=== PATIENT | male | born 1955 | race Hispanic/Latino ===

== ENCOUNTER → 2018-08-14 | Outpatient (CLI) | payer OTHER ==
[2018-08-14 10:37] LABS: BASOPHILS % (AUTO) 0.6 % (0.0-5.0); EOSINOPHILS % (AUTO) 2.3 % (0.0-8.0); HEMATOCRIT 47.5 % (42-54); LYMPHOCYTES % (AUTO) 28.2 % (21.0-51.0); MEAN CORPUSCULAR HEMOGLOBIN 30.5 pg (27.0-33.0); MEAN CORPUSCULAR HGB CONC 34.7 g/dL (32.0-36.0); MEAN CORPUSCULAR VOLUME 88.1 fL (79-99); MONOCYTES % (AUTO) 5.9 % (3.0-13.0); NUCLEATED RED BLOOD CELLS 0.1 % (0.0-0.19); PLATELET COUNT (AUTO) 264 K/uL (130-400); RED BLOOD CELL COUNT(AUTO) 5.39 MIL/uL (4.50-6.20); RED CELL DISTRIBUTION WIDTH 13.5 % (11.0-15.5); WHITE BLOOD COUNT (AUTO) 11.4 K/uL (4.8-10.8)
[2018-08-14 10:49] LABS: HEMOGLOBIN A1C 5.9 % (4.0-6.0)
[2018-08-14 11:04] LABS: ALBUMIN 4.2 g/dL (3.5-5.0); BILIRUBIN,DIRECT 0.1 mg/dL (0.0-0.3); BILIRUBIN,TOTAL 0.6 mg/dL (0.2-1.0); CREATININE 0.9 mg/dL (0.5-1.5); POTASSIUM 4.7 mmol/L (3.5-5.1); THYROID STIMULATING HORMONE 1.66 uIU/mL (0.36-3.74); TOTAL PROTEIN, SERUM 8.1 g/dL (6.0-8.3)
== END | disposition home or self-care (01) ==
LOC: LAB 09:41
PROVIDERS: ATTEND Internal Medicine
DX: Z12.5 Encounter for screening for malignant neoplasm of prostate (principal); Z13.1 Encounter for screening for diabetes mellitus; E55.9 Vitamin D deficiency, unspecified; E03.9 Hypothyroidism, unspecified
CPT/HCPCS: 36415; 80053; 80061; 80076; 82043; 82306; 83036; 84153; 84443; 84540; 85025

== ENCOUNTER → 2018-09-22 | Outpatient (CLI) | payer BC, OTHER | END | disposition home or self-care (01) | LOC: RAH 07:51 | PROVIDERS: ATTEND Internal Medicine | DX: M47.812 Spondylosis without myelopathy or radiculopathy, cervical region (principal); M48.02 Spinal stenosis, cervical region; M25.78 Osteophyte, vertebrae; M48.061 Spinal stenosis, lumbar region without neurogenic claudication; M50.30 Other cervical disc degeneration, unspecified cervical region; M99.81 Other biomechanical lesions of cervical region; M99.83 Other biomechanical lesions of lumbar region; M54.17 Radiculopathy, lumbosacral region | CPT/HCPCS: 72141; 72148 ==

== ENCOUNTER 2018-11-05 08:53 | Emergency (ER) | payer BC, OTHER ==
[2018-11-05] MEDS ORDERED: ORPHENADRINE CITRATE 30 MG/ML ML ONE (09:23)
[2018-11-05] MEDS ORDERED: KETOROLAC TROMETHAMINE 30MG/ML ONE (09:24)
[2018-11-05 10:13] LABS: BASOPHILS % (AUTO) 0.6 % (0.0-5.0); HEMATOCRIT 45.6 % (42-54); LYMPHOCYTES % (AUTO) 22.6 % (21.0-51.0); MEAN CORPUSCULAR HEMOGLOBIN 29.9 pg (27.0-33.0); MEAN CORPUSCULAR VOLUME 87.8 fL (79-99); MONOCYTES % (AUTO) 5.5 % (3.0-13.0); NEUTROPHILS % (AUTO) 69.3 % (40.0-77.0); NUCLEATED RED BLOOD CELLS 0.1 % (0.0-0.19); PLATELET COUNT (AUTO) 255 K/uL (130-400); RED BLOOD CELL COUNT(AUTO) 5.19 MIL/uL (4.50-6.20); RED CELL DISTRIBUTION WIDTH 12.9 % (11.0-15.5); WHITE BLOOD COUNT (AUTO) 12.1 K/uL (4.8-10.8)
[2018-11-05 10:20] LABS: POTASSIUM 4.1 mmol/L (3.5-5.1)
[2018-11-05 10:24] LABS: ALBUMIN 3.8 g/dL (3.5-5.0); BILIRUBIN,DIRECT 0.1 mg/dL (0.0-0.3); BILIRUBIN,TOTAL 0.3 mg/dL (0.2-1.0); TOTAL PROTEIN, SERUM 7.3 g/dL (6.0-8.3)
[2018-11-05 10:29] LABS: INR 0.93 (0.85-1.15); PARTIAL THROMBOPLASTIN TIME 25.9 SEC (26.3-35.5); PROTHROMBIN TIME 9.8 SEC (9.6-11.6)
[2018-11-05 10:37] LABS: B-TYPE NATRIURETIC PEPTIDE 7 pg/mL (0-100)
[2018-11-05 10:50] LABS: APPEARANCE,URINE Clear (CLEAR); BILIRUBIN,URINE Negative (NEGATIVE); COLOR,URINE Yellow (YELLOW); GLUCOSE, URINE (UA) Negative (NEGATIVE); KETONES,URINE Negative (NEGATIVE); LEUKOCYTE ESTERASE ,URINE Negative (NEGATIVE); NITRATE,URINE Negative (NEGATIVE); OCCULT BLOOD,URINE Moderate (NEGATIVE); PROTEIN,URINE POS 1+ mg/dL (NEGATIVE); UROBILINOGEN,URINE 0.2 mg/dL (0.2-1.0)
[2018-11-05 11:10] LABS: BACTERIA,URINE Few /HPF (None Seen)
[2018-11-05 11:12] LABS: SQUAMOUS EPITHELIAL CELL,UR 0-2 /HPF (0-2)
== END 2018-11-05 14:42 | disposition home or self-care (01) ==
LOC: EDH 08:53
DX: S13.8XXA Sprain of joints and ligaments of other parts of neck, initial encounter (principal); S20.219A Contusion of unspecified front wall of thorax, initial encounter; G89.29 Other chronic pain; M54.9 Dorsalgia, unspecified; I10 Essential (primary) hypertension; V49.49XA Driver injured in collision with other motor vehicles in traffic accident, initial encounter; Y93.89 Activity, other specified; Y92.89 Other specified places as the place of occurrence of the external cause; Y99.8 Other external cause status
CPT/HCPCS: 36415; 70450; 71250; 72125; 74176; 80048; 80076; 81001; 82550; 83880; 84484; 85025; 85610; 85730; 93005; 96374; 96375; 99285; J1885; J2360

== ENCOUNTER → 2019-03-09 | Outpatient (CLI) | payer BC, OTHER ==
[2019-03-09 05:37] LABS: BASOPHILS % (AUTO) 1.2 % (0.0-5.0); EOSINOPHILS % (AUTO) 3.5 % (0.0-8.0); HEMATOCRIT 44.1 % (42-54); LYMPHOCYTES % (AUTO) 33.4 % (21.0-51.0); MEAN CORPUSCULAR HEMOGLOBIN 30.4 pg (27.0-33.0); MEAN CORPUSCULAR HGB CONC 34.5 g/dL (32.0-36.0); MEAN CORPUSCULAR VOLUME 88.1 fL (79-99); MONOCYTES % (AUTO) 7.5 % (3.0-13.0); NEUTROPHILS % (AUTO) 54.4 % (40.0-77.0); NUCLEATED RED BLOOD CELLS 0.1 % (0.0-0.19); PLATELET COUNT (AUTO) 306 K/uL (130-400); RED BLOOD CELL COUNT(AUTO) 5.01 MIL/uL (4.50-6.20); RED CELL DISTRIBUTION WIDTH 13.5 % (11.0-15.5); WHITE BLOOD COUNT (AUTO) 11.1 K/uL (4.8-10.8)
[2019-03-09 06:03] LABS: ALBUMIN 3.9 g/dL (3.5-5.0); BILIRUBIN,TOTAL 0.8 mg/dL (0.2-1.0); CREATININE 1.1 mg/dL (0.5-1.5); CRP QUANTITATIVE 5.3 mg/L (0.00-9.0); POTASSIUM 4.1 mmol/L (3.5-5.1); THYROID STIMULATING HORMONE 3.09 uIU/mL (0.36-3.74); TOTAL PROTEIN, SERUM 7.5 g/dL (6.0-8.3)
[2019-03-09 06:40] LABS: ERYTHROCYTE SEDIMENTATION RATE 3 MM/HR (0-20)
== END | disposition home or self-care (01) ==
LOC: LAB 05:00
PROVIDERS: ATTEND Internal Medicine
DX: M50.30 Other cervical disc degeneration, unspecified cervical region (principal); M17.10 Unilateral primary osteoarthritis, unspecified knee
CPT/HCPCS: 36415; 80053; 80061; 83036; 84153; 84443; 85025; 85651; 86038; 86140; 86431

== ENCOUNTER 2019-04-10 17:41 | Emergency (ER) | payer BC, OTHER ==
[2019-04-10] MEDS ORDERED: KETOROLAC TROMETHAMINE 60 MG/2 ML VIAL ONE (18:28)
[2019-04-10] MEDS ORDERED: METHYLPREDNISOLONE SOD SUCC 125MG/2ML VIAL ONE (18:28)
== END 2019-04-10 20:25 | disposition home or self-care (01) ==
LOC: EDH 17:41
DX: M17.12 Unilateral primary osteoarthritis, left knee (principal); I10 Essential (primary) hypertension
CPT/HCPCS: 73562 ×2; 96372 ×2; 99284; J1885; J2930

== ENCOUNTER → 2019-04-23 | Outpatient (CLI) | payer BC, OTHER | END | disposition home or self-care (01) | LOC: RAH 14:56 | PROVIDERS: ATTEND Internal Medicine | DX: M25.462 Effusion, left knee (principal); M17.12 Unilateral primary osteoarthritis, left knee | CPT/HCPCS: 73721 ==

== ENCOUNTER 2019-07-04 06:32 | Day surgery (SDC) | payer BC, OTHER ==
[2019-07-02 11:34] LABS: EOSINOPHILS % (AUTO) 2.4 % (0.0-8.0); HEMATOCRIT 46.2 % (42-54); LYMPHOCYTES % (AUTO) 27.7 % (21.0-51.0); MEAN CORPUSCULAR HEMOGLOBIN 29.1 pg (27.0-33.0); MEAN CORPUSCULAR HGB CONC 33.3 g/dL (32.0-36.0); MEAN CORPUSCULAR VOLUME 87.3 fL (79-99); MONOCYTES % (AUTO) 5.7 % (3.0-13.0); NEUTROPHILS % (AUTO) 62.9 % (40.0-77.0); PLATELET COUNT (AUTO) 277 K/uL (130-400); RED BLOOD CELL COUNT(AUTO) 5.29 MIL/uL (4.50-6.20); RED CELL DISTRIBUTION WIDTH 12.2 % (11.0-15.5)
[2019-07-02 11:42] LABS: POTASSIUM 4.5 mmol/L (3.5-5.1)
[2019-07-02 11:58] VITALS: BP 149/87
--- NOTE | 2019-07-03 14:01 | NUR ---
Called Doctor Lorenzo and reported wbc 11.0, no new order okay to proceed.
[2019-07-04] VITALS (14 sets, daily range): BP systolic 115–148; BP diastolic 68–93
[~2019-07-04] VITALS: Ht 167.6 cm; Wt 90.5 kg
[~2019-07-04 06:32] MED LIST: BACL10TA PO; CEFAZOLIN SODIUM 1 GM VIAL IVP SCH; MELO-108 PO; TRAM50TA4 PO; tylenol
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
[2019-07-04] MEDS ORDERED: LACTATED RINGERS 1000ML 1,000 ML IV ONE (08:03)
[2019-07-04] MEDS ORDERED: LIDOCAINE PF 2% 5ML ABBOJECT ONE (08:18)
[2019-07-04] MEDS ORDERED: FENTANYL CITRATE PF 50 MCG/1 ML 2ML VIAL ONE ×2 (08:18→08:29)
[2019-07-04] MEDS ORDERED: PROPOFOL 10 MG/ML 20ML VIAL IV ONE (08:18)
[2019-07-04] MEDS ORDERED: ONDANSETRON HCL 4 MG/2 ML VIAL ONE (08:27)
[2019-07-04] MEDS ORDERED: KETOROLAC TROMETHAMINE 30MG/ML ONE (08:27)
[2019-07-04] MEDS ORDERED: DEXAMETHASONE SOD PHOSPHATE 10MG/ML 1ML VIAL ONE (08:27)
[2019-07-04] MEDS ORDERED: MEPERIDINE-PF 25 MG/ML SYG ONE (08:33)
[2019-07-04] MEDS ORDERED: EPHEDRINE SULFATE 50 MG/ML AMPULE ONE (08:36)
[2019-07-04] MEDS ORDERED: MELO-108 PO (09:28)
[2019-07-04] MEDS ORDERED: ACET1TAB12 PO (09:28)
[2019-07-04] MEDS ORDERED: CEPH500B PO (09:28)
--- NOTE | 2019-07-04 10:25 | NUR ---
POST RECEIVED PT FROM PACU, S/P LEFT KNEE ARTHROSCOPY, DRESSING TO SITE DRY AND INTACT, NEUROVASCULAR CHECK WNL. PT AWAKE AND ALERT , NO DISTRESS NOTED. PLAN OF CARE DISCUSS WITH PATIENT/ SPOUSE
--- NOTE | 2019-07-04 11:05 | NUR ---
DC DC INSTRUCTIONS GIVEN TO PT SPOUSE WITH RX X 3, INSTRUCTED TO F/U WITH DR. RAHMAN. AND ON NEW MED REGIMEN. PHOTO COPY OF DR RAHMAN POST ARTHROSCOPY ORDERS GIVEN AND INSTRUCTED TO PT/SPOUSE .
--- NOTE | 2019-07-04 11:19 | NUR ---
dc pt dc home via wc, no distress noted. pt accompanied by spouse, crutches provided to patient. .left knee dressing dry and intact
== END 2019-07-04 11:19 | disposition home or self-care (01) ==
LOC: DAH 06:32
PROVIDERS: ATTEND Orthopaedic Surgery
DX: M23.222 Derangement of posterior horn of medial meniscus due to old tear or injury, left knee (principal); M23.242 Derangement of anterior horn of lateral meniscus due to old tear or injury, left knee; M17.12 Unilateral primary osteoarthritis, left knee; M94.262 Chondromalacia, left knee; Z88.1 Allergy status to other antibiotic agents; Z79.899 Other long term (current) drug therapy; Z82.49 Family history of ischemic heart disease and other diseases of the circulatory system; Z83.3 Family history of diabetes mellitus
CPT/HCPCS: 29880; 36415; 80048; 85025; A4213; A4215; A4221; A4222; A4223; A4606; A4649 ×2; A4663; A4930 ×2; A5120; A6223; J0690; J1100; J1885; J2001; J2175; J2405; J2704; J3010 ×2; J3490; J7120

== ENCOUNTER → 2019-09-15 | Outpatient (CLI) | payer BC, OTHER | END | disposition home or self-care (01) | LOC: LAB 09:48 | PROVIDERS: ATTEND Internal Medicine | DX: E29.1 Testicular hypofunction (principal); I10 Essential (primary) hypertension; R53.83 Other fatigue ==

== ENCOUNTER → 2020-01-11 | Outpatient (CLI) | payer OTHER, BC ==
[~2020-01-11] MED LIST changes: +ACET1TAB12 PO; -CEFAZOLIN SODIUM 1 GM VIAL IVP SCH; +CEPH500B PO; -TRAM50TA4 PO
[2020-01-11 13:13] LABS: BASOPHILS % (AUTO) 0.8 % (0.0-5.0); EOSINOPHILS % (AUTO) 2.3 % (0.0-8.0); HEMATOCRIT 54.4 % (42-54); LYMPHOCYTES % (AUTO) 25.7 % (21.0-51.0); MEAN CORPUSCULAR HEMOGLOBIN 29.3 pg (27.0-33.0); MEAN CORPUSCULAR HGB CONC 33.6 g/dL (32.0-36.0); MEAN CORPUSCULAR VOLUME 87.2 fL (79-99); MONOCYTES % (AUTO) 6.5 % (3.0-13.0); NEUTROPHILS % (AUTO) 64.3 % (40.0-77.0); PLATELET COUNT (AUTO) 284 K/uL (130-400); RED BLOOD CELL COUNT(AUTO) 6.24 MIL/uL (4.50-6.20); WHITE BLOOD COUNT (AUTO) 11.1 K/uL (4.8-10.8)
[2020-01-11 13:37] LABS: ALBUMIN 4.1 g/dL (3.5-5.0); BILIRUBIN,TOTAL 0.6 mg/dL (0.2-1.0)
[2020-01-11 13:38] LABS: CRP QUANTITATIVE 7.9 mg/L (0.00-9.0); POTASSIUM 4.3 mmol/L (3.5-5.1); THYROID STIMULATING HORMONE 1.77 uIU/mL (0.36-3.74); TOTAL PROTEIN, SERUM 7.7 g/dL (6.0-8.3)
[2020-01-11 13:45] LABS: HEMOGLOBIN A1C 5.7 % (4.0-6.0)
[2020-01-11 14:34] LABS: ERYTHROCYTE SEDIMENTATION RATE 2 MM/HR (0-20)
== END | disposition home or self-care (01) ==
LOC: RAH 12:03
PROVIDERS: ATTEND Internal Medicine
DX: M16.11 Unilateral primary osteoarthritis, right hip (principal); M54.12 Radiculopathy, cervical region; M54.16 Radiculopathy, lumbar region; M99.81 Other biomechanical lesions of cervical region; L40.9 Psoriasis, unspecified; K42.9 Umbilical hernia without obstruction or gangrene
CPT/HCPCS: 36415; 73502; 80053; 82306; 83036; 84443; 85025; 85651; 86038; 86140; 86215; 86235

== ENCOUNTER 2020-01-28 06:34 | Day surgery (SDC) | payer OTHER, BC ==
[~2020-01-28] VITALS: Ht 165.1 cm; Wt 88.9 kg
[~2020-01-28 06:34] MED LIST changes: -ACET1TAB12 PO; -BACL10TA PO; -CEPH500B PO; +SODIUM CHLORIDE 0.9% 1000ML 1,000 ML IV ONE
[2020-01-28 07:30] VITALS: BP 140/90
[2020-01-28] MEDS ORDERED: PROPOFOL 10 MG/ML 20ML VIAL IV ONE (09:10)
[2020-01-28 09:36] VITALS: BP 110/62
[2020-01-28 09:41] VITALS: BP 105/62
[2020-01-28 09:45] VITALS: BP 110/74
[2020-01-28 09:51] VITALS: BP 117/75
[2020-01-28 09:56] VITALS: BP 115/63
== END 2020-01-28 11:58 | disposition home or self-care (01) ==
LOC: DAH 06:34 → ENDO 06:34
PROVIDERS: ATTEND Internal Medicine Gastroenterology
DX: Z12.11 Encounter for screening for malignant neoplasm of colon (principal); D12.3 Benign neoplasm of transverse colon; K62.1 Rectal polyp; K57.30 Diverticulosis of large intestine without perforation or abscess without bleeding; I10 Essential (primary) hypertension; E78.5 Hyperlipidemia, unspecified; Z86.010 Personal history of colon polyps; F41.9 Anxiety disorder, unspecified; Z79.899 Other long term (current) drug therapy
CPT/HCPCS: 36415; 45380; 45385; A4215; A4221; A4222; A4223; A4606; A4620; A4663; C9803; J2704; J7030; U0003

== ENCOUNTER → 2020-03-15 | Outpatient (CLI) | payer OTHER, BC ==
[~2020-03-15] MED LIST changes: -SODIUM CHLORIDE 0.9% 1000ML 1,000 ML IV ONE
== END | disposition home or self-care (01) ==
LOC: SLP 20:24
PROVIDERS: ATTEND Internal Medicine
DX: G47.33 Obstructive sleep apnea (adult) (pediatric) (principal)
CPT/HCPCS: 95810

== ENCOUNTER → 2020-03-24 | Outpatient (CLI) | payer OTHER, BC | END | disposition home or self-care (01) | LOC: SLP 20:30 | PROVIDERS: ATTEND Internal Medicine | DX: G47.33 Obstructive sleep apnea (adult) (pediatric) (principal) | CPT/HCPCS: 95811 ==

== ENCOUNTER → 2020-11-11 | Outpatient (CLI) | payer BC, OTHER ==
[2020-11-11 09:29] LABS: BASOPHILS % (AUTO) 0.8 % (0.0-5.0); EOSINOPHILS % (AUTO) 2.1 % (0.0-8.0); HEMATOCRIT 47.6 % (42-54); LYMPHOCYTES % (AUTO) 29.8 % (21.0-51.0); MEAN CORPUSCULAR HEMOGLOBIN 28.9 pg (27.0-33.0); MEAN CORPUSCULAR HGB CONC 33.2 g/dL (32.0-36.0); MEAN CORPUSCULAR VOLUME 87.2 fL (79-99); MONOCYTES % (AUTO) 6.8 % (3.0-13.0); NEUTROPHILS % (AUTO) 60.2 % (40.0-77.0); PLATELET COUNT (AUTO) 328 K/uL (130-400); RED BLOOD CELL COUNT(AUTO) 5.46 MIL/uL (4.50-6.20); RED CELL DISTRIBUTION WIDTH 12.6 % (11.0-15.5); WHITE BLOOD COUNT (AUTO) 11.6 K/uL (4.8-10.8)
[2020-11-11 09:40] LABS: HEMOGLOBIN A1C 6.1 % (4.0-6.0)
[2020-11-11 09:59] LABS: ALBUMIN 4.2 g/dL (3.5-5.0); BILIRUBIN,TOTAL 0.5 mg/dL (0.2-1.0); CREATININE 1.1 mg/dL (0.5-1.5); CRP QUANTITATIVE 5.6 mg/L (0.00-9.0); POTASSIUM 4.8 mmol/L (3.5-5.1); THYROID STIMULATING HORMONE 2.88 uIU/mL (0.36-3.74); URIC ACID 7.2 mg/dL (2.6-7.2)
== END | disposition home or self-care (01) ==
LOC: LAB 08:54
PROVIDERS: ATTEND Internal Medicine
DX: C61 Malignant neoplasm of prostate (principal); E29.1 Testicular hypofunction; E53.8 Deficiency of other specified B group vitamins; E55.9 Vitamin D deficiency, unspecified; F32.4 Major depressive disorder, single episode, in partial remission; I10 Essential (primary) hypertension
CPT/HCPCS: 36415; 80053; 80061; 82043; 82607; 82652; 83036; 84153; 84154; 84443; 84550; 85025; 86140

== ENCOUNTER 2021-01-11 17:03 | Emergency (ER) | payer BC ==
[~2021-01-11] VITALS: Ht 165.1 cm; Wt 88.5 kg
[2021-01-11 17:10] VITALS: BP 156/84
[2021-01-11] MEDS ORDERED: OCTYL 2-CYANOACRYLATE 1 EACH TP ONE ×2 (17:20→17:39)
[2021-01-11] MEDS ORDERED: TETANUS/DIPHTHERIA TOXOID [ADULT] 0.5 ML VIAL IM ONE ×2 (18:12→18:30)
== END 2021-01-11 18:23 | disposition home or self-care (01) ==
LOC: EEVIPCON 17:03 → EDH 17:03
DX: S61.210A Laceration without foreign body of right index finger without damage to nail, initial encounter (principal); Z79.1 Long term (current) use of non-steroidal anti-inflammatories (NSAID); W26.8XXA Contact with other sharp object(s), not elsewhere classified, initial encounter; Y93.89 Activity, other specified; Y92.89 Other specified places as the place of occurrence of the external cause; Y99.8 Other external cause status
CPT/HCPCS: 12002; 90471; 90714

== ENCOUNTER 2021-06-18 07:00 | Day surgery (SDC) | payer OTHER, BC ==
[2021-06-11 12:27] LABS: BASOPHILS % (AUTO) 0.7 % (0.0-5.0); EOSINOPHILS % (AUTO) 0.7 % (0.0-8.0); HEMATOCRIT 40.6 % (42-54); LYMPHOCYTES % (AUTO) 18.8 % (21.0-51.0); MEAN CORPUSCULAR HEMOGLOBIN 29.1 pg (27.0-33.0); MEAN CORPUSCULAR HGB CONC 33.5 g/dL (32.0-36.0); MEAN CORPUSCULAR VOLUME 86.8 fL (79-99); MONOCYTES % (AUTO) 6.3 % (3.0-13.0); NEUTROPHILS % (AUTO) 73.3 % (40.0-77.0); PLATELET COUNT (AUTO) 302 K/uL (130-400); RED BLOOD CELL COUNT(AUTO) 4.68 MIL/uL (4.50-6.20); RED CELL DISTRIBUTION WIDTH 13.9 % (11.0-15.5); WHITE BLOOD COUNT (AUTO) 10.4 K/uL (4.8-10.8)
[2021-06-11 12:36] LABS: CREATININE 0.8 mg/dL (0.5-1.5); POTASSIUM 4.2 mmol/L (3.5-5.1)
[2021-06-11 13:09] LABS: APPEARANCE,URINE CLEAR (CLEAR); BILIRUBIN,URINE SMALL (NEGATIVE); COLOR,URINE YELLOW (YELLOW); GLUCOSE, URINE (UA) NEGATIVE (NEGATIVE); KETONES,URINE >=80 mg/dL (NEGATIVE); LEUKOCYTE ESTERASE ,URINE NEGATIVE (NEGATIVE); NITRATE,URINE NEGATIVE (NEGATIVE); OCCULT BLOOD,URINE NEGATIVE (NEGATIVE); PROTEIN,URINE NEGATIVE (NEGATIVE); UROBILINOGEN,URINE 0.2 mg/dL (0.2-1.0)
[2021-06-11 13:20] LABS: BACTERIA,URINE Rare /HPF (None Seen); RBC,URINE 0-1 /HPF (0-1); SQUAMOUS EPITHELIAL CELL,UR Rare /HPF (0-2); WBC,URINE 0-1 /HPF (0-1)
[2021-06-17 10:36] VITALS: BP 152/76
[~2021-06-18] VITALS: Ht 165.1 cm; Wt 81.0 kg
[2021-06-18] VITALS (18 sets, daily range): BP systolic 76–136; BP diastolic 40–78
[~2021-06-18 07:00] MED LIST changes: +CEFTRIAXONE 1G VIAL IVP ONE; +GENTAMICIN 80 MG/NS 100 ML PB 100 ML IV SCH; -MELO-108 PO; -tylenol
[2021-06-18] MEDS ORDERED: LACTATED RINGERS 1000ML 1,000 ML IV ONE (08:15)
[2021-06-18] MEDS ORDERED: PROPOFOL 1000 MG/100 ML 100 ML IV ONE (08:27)
[2021-06-18] MEDS ORDERED: KETAMINE 50MG/ML SYRINGE 50 MG/ML DISP.SYRIN IV ONE (08:28)
[2021-06-18] MEDS ORDERED: FENTANYL CITRATE PF 50 MCG/1 ML 2ML VIAL ONE (08:30)
[2021-06-18] MEDS ORDERED: MIDAZOLAM HCL 1 MG/ML 2ML VIAL ONE (08:30)
[2021-06-18] MEDS ORDERED: GENTAMICIN 80 MG/NS 100 ML PB 100 ML IV ONE (08:31)
[2021-06-18] MEDS ORDERED: CEFTRIAXONE 1G VIAL ONE (08:31)
[2021-06-18] MEDS ORDERED: OMEG100014 PO (08:48)
[2021-06-18] MEDS ORDERED: MULT-1203 PO (08:48)
[2021-06-18] MEDS ORDERED: GLUT360P3 MC (08:48)
[2021-06-18] MEDS ORDERED: CIDE300T3 PO (08:48)
[2021-06-18] MEDS ORDERED: TAMS-1 PO (08:48)
[2021-06-18] MEDS ORDERED: LORA10TA7 PO (08:48)
[2021-06-18] MEDS ORDERED: MILK1CAP3 PO (08:48)
[2021-06-18] MEDS ORDERED: TURM1POW2 MC (08:48)
[2021-06-18] MEDS ORDERED: AMLO-314 PO (08:48)
[2021-06-18] MEDS ORDERED: GINK30CA3 PO (08:48)
[2021-06-18] MEDS ORDERED: EPHEDRINE SULFATE 50 MG/ML AMPULE ONE (09:31)
== END 2021-06-18 11:20 | disposition home or self-care (01) ==
LOC: DAH 07:00
PROVIDERS: ATTEND Urology
DX: N40.0 Benign prostatic hyperplasia without lower urinary tract symptoms (principal); Z20.822 Contact with and (suspected) exposure to COVID-19; Z80.42 Family history of malignant neoplasm of prostate; Z79.899 Other long term (current) drug therapy; Z98.890 Other specified postprocedural states
CPT/HCPCS: 36415; 55700; 71045; 76872; 76942; 80048; 81001; 85025; 87088; 87635; 93005; A4215 ×2; A4221; A4222; A4223; A4649; A4663; A6260; C9803; J0696; J1580; J2250; J2704; J3010; J3490 ×2; J7120

== ENCOUNTER 2021-09-17 05:56 | Day surgery (SDC) | payer OTHER, BC ==
[2021-09-08 09:28] LABS: BASOPHILS % (AUTO) 0.7 % (0.0-5.0); EOSINOPHILS % (AUTO) 3.3 % (0.0-8.0); HEMATOCRIT 45.8 % (42-54); LYMPHOCYTES % (AUTO) 23.4 % (21.0-51.0); MEAN CORPUSCULAR HEMOGLOBIN 28.7 pg (27.0-33.0); MEAN CORPUSCULAR HGB CONC 32.5 g/dL (32.0-36.0); MEAN CORPUSCULAR VOLUME 88.1 fL (79-99); NEUTROPHILS % (AUTO) 66.2 % (40.0-77.0); PLATELET COUNT (AUTO) 291 K/uL (130-400); RED CELL DISTRIBUTION WIDTH 13.3 % (11.0-15.5); WHITE BLOOD COUNT (AUTO) 9.5 K/uL (4.8-10.8)
[2021-09-08 09:39] LABS: CREATININE 0.8 mg/dL (0.5-1.5); POTASSIUM 4.4 mmol/L (3.5-5.1)
[2021-09-16 09:31] VITALS: BP 137/71
[~2021-09-17] VITALS: Ht 165.1 cm; Wt 71.8 kg
[2021-09-17] VITALS (18 sets, daily range): BP systolic 104–147; BP diastolic 55–76
[~2021-09-17 05:56] MED LIST changes: +AMLO-340 PO; +CEFAZOLIN SODIUM 2 GM VIAL IV SCH; -CEFTRIAXONE 1G VIAL IVP ONE; +CIDE300T3 PO; -GENTAMICIN 80 MG/NS 100 ML PB 100 ML IV SCH; +GINK30CA3 PO; +GLUT360P3 MC; +MILK1CAP3 PO; +MULT-1203 PO; +OMEG100014 PO; +TAMS-1 PO; +TURM1POW2 MC
[2021-09-17] MEDS ORDERED: CEFAZOLIN SODIUM 1 GM VIAL ONE (06:27)
[2021-09-17] MEDS ORDERED: LACTATED RINGERS 1000ML 1,000 ML IV ONE (06:27)
[2021-09-17] MEDS ORDERED: CEFAZOLIN SODIUM 2 GM VIAL IV ONE (07:00)
[2021-09-17] MEDS ORDERED: FAMOTIDINE 20MG VIAL IV ONE (07:11)
[2021-09-17] MEDS ORDERED: HYDROMORPHONE 1 MG INJ ONE (07:11)
[2021-09-17] MEDS ORDERED: LIDOCAINE PF 100MG/5ML (2%) SYRINGE 5ML ONE (07:13)
[2021-09-17] MEDS ORDERED: FENTANYL CITRATE PF 50 MCG/1 ML 2ML VIAL ONE (07:14)
[2021-09-17] MEDS ORDERED: GLYCOPYRROLATE 1 MG/5 ML SYRINGE ONE (07:14)
[2021-09-17] MEDS ORDERED: NEOSTIGMINE 5MG/5ML SYR IV ONE (07:14)
[2021-09-17] MEDS ORDERED: PROPOFOL 10 MG/ML 20ML VIAL IV ONE (07:14)
[2021-09-17] MEDS ORDERED: ROCURONIUM 10MG/1ML SYR 10 MG/ML ML ONE (07:15)
[2021-09-17] MEDS ORDERED: LIDOCAINE HCL-MPF 2% 10ML AMP IJ ONE (07:17)
[2021-09-17] MEDS ORDERED: BUPIVACAINE/PF 0.25% 30ML VIAL IJ ONE ×2 (07:31→07:35)
[2021-09-17] MEDS ORDERED: ONDANSETRON 4MG INJ ONE (07:43)
[2021-09-17] MEDS ORDERED: MEPERIDINE-PF 25 MG/ML SYG ONE ×3 (07:47→08:31)
== END 2021-09-17 10:00 | disposition home or self-care (01) ==
LOC: DAH 05:56
PROVIDERS: ATTEND Surgery
DX: K43.6 Other and unspecified ventral hernia with obstruction, without gangrene (principal); I10 Essential (primary) hypertension; F17.200 Nicotine dependence, unspecified, uncomplicated; Z98.890 Other specified postprocedural states; Z79.899 Other long term (current) drug therapy
CPT/HCPCS: 36415; 49653; 80048; 85025; 87635; 93005; A4215; A4221; A4222; A4223; A4606; A4663; C9803; G0168; J0690 ×2; J2001; J2175 ×3; J2405; J2704; J2710; J3010; J3490 ×5; J7030; J7120 ×2; J1170

== ENCOUNTER → 2022-07-16 | Outpatient (CLI) | payer OTHER, BC ==
[~2022-07-16] MED LIST changes: -CEFAZOLIN SODIUM 2 GM VIAL IV SCH
[2022-07-16 06:47] LABS: BASOPHILS % (AUTO) 0.9 % (0.0-5.0); EOSINOPHILS % (AUTO) 3.1 % (0.0-8.0); HEMATOCRIT 44.5 % (42-54); LYMPHOCYTES % (AUTO) 25.2 % (21.0-51.0); MEAN CORPUSCULAR HEMOGLOBIN 29.1 pg (27.0-33.0); MEAN CORPUSCULAR HGB CONC 33.7 g/dL (32.0-36.0); MEAN CORPUSCULAR VOLUME 86.4 fL (79-99); MONOCYTES % (AUTO) 6.5 % (3.0-13.0); NEUTROPHILS % (AUTO) 63.9 % (40.0-77.0); PLATELET COUNT (AUTO) 289 K/uL (130-400); RED BLOOD CELL COUNT(AUTO) 5.15 MIL/uL (4.50-6.20); RED CELL DISTRIBUTION WIDTH 12.5 % (11.0-15.5); WHITE BLOOD COUNT (AUTO) 11.3 K/uL (4.8-10.8)
[2022-07-16 07:16] LABS: ALBUMIN 3.7 g/dL (3.5-5.0); BILIRUBIN,DIRECT 0.1 mg/dL (0.0-0.3); CREATININE 0.9 mg/dL (0.5-1.5); HEMOGLOBIN A1C 5.9 % (4.0-6.0); POTASSIUM 4.4 mmol/L (3.5-5.1); THYROID STIMULATING HORMONE 3.49 uIU/mL (0.36-3.74); TOTAL PROTEIN, SERUM 7.3 g/dL (6.0-8.3)
== END | disposition home or self-care (01) ==
LOC: LAB 06:13
PROVIDERS: ATTEND Internal Medicine
DX: D75.1 Secondary polycythemia (principal); I10 Essential (primary) hypertension; E55.9 Vitamin D deficiency, unspecified; K76.0 Fatty (change of) liver, not elsewhere classified; N40.1 Benign prostatic hyperplasia with lower urinary tract symptoms
CPT/HCPCS: 36415; 80053; 80061; 80076; 82043; 82248; 83036; 84153; 84443; 85025

== ENCOUNTER 2023-04-13 08:48 | Emergency (ER) | payer OTHER, BC ==
[~2023-04-13] VITALS: Ht 165.1 cm; Wt 86.2 kg
[2023-04-13 10:04] LABS: HEMATOCRIT 42.6 % (42-54); MEAN CORPUSCULAR HEMOGLOBIN 29.7 pg (27.0-33.0); MEAN CORPUSCULAR VOLUME 87.3 fL (79-99); RED BLOOD CELL COUNT(AUTO) 4.88 MIL/uL (4.50-6.20); RED CELL DISTRIBUTION WIDTH 12.7 % (11.0-15.5); WHITE BLOOD COUNT (AUTO) 12.9 K/uL (4.8-10.8)
[2023-04-13 10:16] LABS: CREATININE 0.8 mg/dL (0.5-1.5); POTASSIUM 3.7 mmol/L (3.5-5.1)
[2023-04-13 10:22] LABS: ALBUMIN 3.7 g/dL (3.5-5.0); BILIRUBIN,TOTAL 0.4 mg/dL (0.2-1.0); MAGNESIUM 1.9 mg/dL (1.80-2.40); TOTAL PROTEIN, SERUM 7.5 g/dL (6.0-8.3)
[2023-04-13] MEDS ORDERED: METR-172 PO (12:23)
[2023-04-13 12:44] VITALS: BP 130/70; PULSE 90; RESP 18; O2SAT 99
[2023-04-15 00:08] LABS: C DIFFICILE TOXIN A/B Not Detected (Not Detected); ENTEROAGGREGATIVE ECOLI Detected (Not Detected); GIARDIA LAMBLIA Not Detected (Not Detected); PLESIOMONAS SHIGELOIDES Not Detected (Not Detected); SAPOVIRUS Not Detected (Not Detected); SHIGELLA/ENTEROINVASIVE E COLI Not Detected (Not Detected); VIBRIO Not Detected (Not Detected); VIBRIO CHOLERAE Not Detected (Not Detected)
== END 2023-04-13 12:44 | disposition home or self-care (01) ==
LOC: EEVIPCON 08:48 → EDH 08:48
DX: K52.9 Noninfective gastroenteritis and colitis, unspecified (principal); Z79.899 Other long term (current) drug therapy; Z98.890 Other specified postprocedural states
CPT/HCPCS: 36415; 80053; 82270; 83630; 83690; 83735; 85027; 87046; 87077; 87177; 87186; 87324; 87338; 87507

== ENCOUNTER → 2023-04-21 | Outpatient (CLI) | payer OTHER ==
[~2023-04-21] MED LIST changes: +METR-172 PO
== END | disposition home or self-care (01) ==
LOC: RAH 08:11
PROVIDERS: ATTEND Internal Medicine
DX: Z13.6 Encounter for screening for cardiovascular disorders (principal)
CPT/HCPCS: 75571

== ENCOUNTER → 2023-05-09 | Outpatient (CLI) | payer OTHER, BC ==
[2023-05-09 08:39] LABS: BASOPHILS # (AUTO) 0.08 K/uL (0.00-0.20); BASOPHILS % (AUTO) 0.9 % (0.0-5.0); EOSINOPHILS # (AUTO) 0.35 K/uL (0.00-0.70); HEMATOCRIT 42.8 % (42-54); IMMATURE GRANULOCYTE ABSOLUTE 0.03 K/uL (0-1); LYMPHOCYTES # (AUTO) 2.4 K/uL (1.0-4.8); LYMPHOCYTES % (AUTO) 27.8 % (21.0-51.0); MEAN CORPUSCULAR HEMOGLOBIN 29.3 pg (27.0-33.0); MEAN CORPUSCULAR HGB CONC 33.9 g/dL (32.0-36.0); MEAN CORPUSCULAR VOLUME 86.5 fL (79-99); MONOCYTES # (AUTO) 0.6 K/uL (0.1-1.0); MONOCYTES % (AUTO) 6.8 % (3.0-13.0); NEUTROPHILS # (AUTO) 5.2 K/uL (1.8-7.7); NEUTROPHILS % (AUTO) 60.2 % (40.0-77.0); PLATELET COUNT (AUTO) 302 K/uL (130-400); RED BLOOD CELL COUNT(AUTO) 4.95 MIL/uL (4.50-6.20); RED CELL DISTRIBUTION WIDTH 13.1 % (11.0-15.5); WHITE BLOOD COUNT (AUTO) 8.7 K/uL (4.8-10.8)
[2023-05-09 08:55] LABS: HEMOGLOBIN A1C 5.7 % (4.0-6.0)
[2023-05-09 09:15] LABS: ALBUMIN 3.7 g/dL (3.5-5.0); BILIRUBIN,TOTAL 0.4 mg/dL (0.2-1.0); CREATININE 0.8 mg/dL (0.5-1.5); POTASSIUM 3.8 mmol/L (3.5-5.1); THYROID STIMULATING HORMONE 3.4 uIU/mL (0.36-3.74); TOTAL PROTEIN, SERUM 7.4 g/dL (6.0-8.3)
[2023-05-10 12:13] LABS: PSA ULTRASENSITIVE 4.34 ng/mL (0.000-4.000)
== END | disposition home or self-care (01) ==
LOC: LAB 07:00
PROVIDERS: ATTEND Internal Medicine
DX: I25.10 Atherosclerotic heart disease of native coronary artery without angina pectoris (principal); E78.5 Hyperlipidemia, unspecified; R53.83 Other fatigue; R73.03 Prediabetes
CPT/HCPCS: 36415; 80053; 80061; 82306; 82607; 83036; 84153; 84403; 84443; 85025

== ENCOUNTER → 2023-05-13 | Outpatient (CLI) | payer OTHER ==
[~2023-05-13] MED LIST changes: +IOHEXOL 350 MG/ML 100ML INFUS..BTL IV ONE; +METOPROLOL TARTRATE 1 MG/ML 5ML VIAL IV ONE
== END | disposition home or self-care (01) ==
LOC: RAH 10:19
PROVIDERS: ATTEND Student in an Organized Health Care Education/Training Program
DX: I25.10 Atherosclerotic heart disease of native coronary artery without angina pectoris (principal)
CPT/HCPCS: 75574; J3490 ×3; Q9967

== ENCOUNTER 2023-07-07 07:52 | Emergency (ER) | payer OTHER ==
[~2023-07-07] VITALS: Ht 165.1 cm; Wt 87.5 kg
[~2023-07-07 07:52] MED LIST changes: -IOHEXOL 350 MG/ML 100ML INFUS..BTL IV ONE; -METOPROLOL TARTRATE 1 MG/ML 5ML VIAL IV ONE
[2023-07-07 08:02] VITALS: BP 128/79; PULSE 93; RESP 18; O2SAT 99
[2023-07-07 08:33] LABS: RAPID GROUP A STREP negative (NEGATIVE)
[2023-07-07 08:37] LABS: SARS-CoV-2, RNA, NAAT NEGATIVE SARS CoV-2 (NEGATIVE)
[2023-07-07 08:43] LABS: INFLUENZA TYPE A Negative For Type A (NEGATIVE); INFLUENZA TYPE B Negative For Type B (NEGATIVE)
[2023-07-07] MEDS: DEXAMETHASONE SOD PHOSPHATE 4 MG/ML 1ML VIAL IM ONE (08:48)
[2023-07-07] MEDS: GUAIFENESIN-DM 200/20 MG 10 ML PO ONE (08:48)
[2023-07-07] MEDS ORDERED: D-ME118S47 PO (08:57)
[2023-07-12] MEDS ORDERED: TAMS-1 PO (14:19)
[2023-07-12] MEDS ORDERED: ZINC PO (14:19)
[2023-07-12] MEDS ORDERED: ATOR40TA69 PO (14:19)
[2023-07-12] MEDS ORDERED: ASPI-1443 PO (14:19)
[2023-07-12] MEDS ORDERED: GLUCOSAMINE PO (14:19)
[2023-07-12] MEDS ORDERED: VITAMIN B COMPLEX PO (14:19)
== END 2023-07-07 09:09 | disposition home or self-care (01) ==
LOC: EDH 07:52
DX: J06.9 Acute upper respiratory infection, unspecified (principal); Z20.822 Contact with and (suspected) exposure to COVID-19; Z79.899 Other long term (current) drug therapy; Z98.890 Other specified postprocedural states
CPT/HCPCS: 99283; 87635; 87880; 87804 ×2; 96372; J1100

== ENCOUNTER → 2023-07-13 | Outpatient (CLI) | payer OTHER ==
[~2023-07-13] MED LIST changes: +AMLO-258 PO; -AMLO-340 PO; +ASPI-1443 PO; +ATOR40TA69 PO; -CIDE300T3 PO; +CLOP-31 PO; -GINK30CA3 PO; +GLUCOSAMINE PO; -GLUT360P3 MC; -METR-172 PO; -MILK1CAP3 PO; -MULT-1203 PO; -OMEG100014 PO; -TURM1POW2 MC; +VITAMIN B COMPLEX PO; +ZINC PO
[2023-07-13 11:29] LABS: CHOLESTEROL 170 mg/dL (<200); HDL CHOLESTEROL 62 mg/dL (29-71); LDL DIRECT 98 mg/dL (0-99); TRIGLYCERIDES 55 mg/dL (30-200)
== END | disposition home or self-care (01) ==
LOC: LAB 07-12 10:00
PROVIDERS: ATTEND Student in an Organized Health Care Education/Training Program
DX: Z01.818 Encounter for other preprocedural examination (principal); E78.5 Hyperlipidemia, unspecified; I25.10 Atherosclerotic heart disease of native coronary artery without angina pectoris
CPT/HCPCS: 36415; 71045; 80048; 80061; 83036; 83880; 85025; 85610; 85730; 93005

== ENCOUNTER 2023-07-18 10:50 | Day surgery (SDC) | payer OTHER ==
[2023-07-12 11:59] LABS: INR <= 0.93 (0.85-1.15)
[2023-07-12 12:02] LABS: PARTIAL THROMBOPLASTIN TIME 28.8 SEC (26.3-35.5)
[2023-07-12 12:17] LABS: POTASSIUM 4.4 mmol/L (3.5-5.1)
[2023-07-12 12:31] LABS: B-TYPE NATRIURETIC PEPTIDE 6 pg/mL (0-100)
[2023-07-12 12:34] LABS: BASOPHILS % (AUTO) 0.7 % (0.0-5.0); EOSINOPHILS # (AUTO) 0.05 K/uL (0.00-0.70); EOSINOPHILS % (AUTO) 0.3 % (0.0-8.0); HEMATOCRIT 46.8 % (42-54); IMMATURE GRANULOCYTE ABSOLUTE 0.19 K/uL (0-1); LYMPHOCYTES # (AUTO) 2.3 K/uL (1.0-4.8); LYMPHOCYTES % (AUTO) 15.4 % (21.0-51.0); MEAN CORPUSCULAR HEMOGLOBIN 29.1 pg (27.0-33.0); MEAN CORPUSCULAR HGB CONC 33.3 g/dL (32.0-36.0); MEAN CORPUSCULAR VOLUME 87.2 fL (79-99); MONOCYTES # (AUTO) 0.4 K/uL (0.1-1.0); MONOCYTES % (AUTO) 2.5 % (3.0-13.0); NEUTROPHILS # (AUTO) 12.1 K/uL (1.8-7.7); NEUTROPHILS % (AUTO) 79.8 % (40.0-77.0); PLATELET COUNT (AUTO) 410 K/uL (130-400); RED BLOOD CELL COUNT(AUTO) 5.37 MIL/uL (4.50-6.20); RED CELL DISTRIBUTION WIDTH 13.1 % (11.0-15.5); WHITE BLOOD COUNT (AUTO) 15.2 K/uL (4.8-10.8)
[2023-07-12 12:54] VITALS: BP 143/79; PULSE 103; RESP 18
[2023-07-18] VITALS (12 sets, daily range): BP systolic 117–154; BP diastolic 64–89; PULSE 70–89; RESP 16–22
[~2023-07-18] VITALS: Ht 165.1 cm; Wt 87.0 kg
[~2023-07-18 10:50] MED LIST changes: -AMLO-258 PO; -CLOP-31 PO
[2023-07-18 12:08] LABS: BASOPHILS # (AUTO) 0.12 K/uL (0.00-0.20); BASOPHILS % (AUTO) 0.9 % (0.0-5.0); EOSINOPHILS # (AUTO) 0.45 K/uL (0.00-0.70); EOSINOPHILS % (AUTO) 3.3 % (0.0-8.0); HEMATOCRIT 45.2 % (42-54); IMMATURE GRANULOCYTE ABSOLUTE 0.09 K/uL (0-1); LYMPHOCYTES # (AUTO) 3.5 K/uL (1.0-4.8); LYMPHOCYTES % (AUTO) 25.5 % (21.0-51.0); MEAN CORPUSCULAR HEMOGLOBIN 28.4 pg (27.0-33.0); MEAN CORPUSCULAR HGB CONC 33.2 g/dL (32.0-36.0); MEAN CORPUSCULAR VOLUME 85.4 fL (79-99); MONOCYTES # (AUTO) 0.8 K/uL (0.1-1.0); MONOCYTES % (AUTO) 5.9 % (3.0-13.0); NEUTROPHILS # (AUTO) 8.7 K/uL (1.8-7.7); NEUTROPHILS % (AUTO) 63.7 % (40.0-77.0); PLATELET COUNT (AUTO) 303 K/uL (130-400); RED BLOOD CELL COUNT(AUTO) 5.29 MIL/uL (4.50-6.20); RED CELL DISTRIBUTION WIDTH 13.1 % (11.0-15.5); WHITE BLOOD COUNT (AUTO) 13.6 K/uL (4.8-10.8)
[2023-07-18] MEDS ORDERED: AMLO-258 PO (12:35)
[2023-07-18] MEDS ORDERED: FENTANYL CITRATE PF 50 MCG/1 ML 2ML VIAL ONE (13:50)
[2023-07-18] MEDS ORDERED: MIDAZOLAM HCL 1 MG/ML 2ML VIAL ONE ×2 (13:50→14:30)
[2023-07-18] MEDS ORDERED: IOHEXOL 350 MG/ML 100ML INFUS..BTL IV ONE (13:50)
[2023-07-18] MEDS ORDERED: IOHEXOL-350 75 ML VIAL IV ONE ×3 (13:50→15:43)
[2023-07-18] MEDS ORDERED: HEPARIN 10,000 UNIT/10ML (1,000 UNIT/ML) VIAL ONE (13:51)
[2023-07-18] MEDS ORDERED: LIDOCAINE HCL 1% 20 ML VIAL ONE (13:51)
[2023-07-18] MEDS ORDERED: NITROGLYCERIN 50MG VIAL ONE (13:51)
[2023-07-18] MEDS ORDERED: VERAPAMIL HCL 2.5 MG/ML VIAL ONE (13:51)
[2023-07-18] MEDS ORDERED: CEFAZOLIN SODIUM 1 GM VIAL ONE (14:15)
[2023-07-18] MEDS ORDERED: EPTIFIBATIDE 75MG/100ML BOTTLE 100 ML IV ONE (14:48)
[2023-07-18] MEDS ORDERED: EPTIFIBATIDE 2 MG/ML 10 ML VIAL IVP ONE (14:49)
[2023-07-18] MEDS ORDERED: CLOPIDOGREL 300MG TAB ONE (15:01)
[2023-07-18] MEDS ORDERED: ASPIRIN 81MG CHEW TAB ONE (15:01)
[2023-07-18] MEDS ORDERED: GLUCAGON 1MG KIT 1 MG ML IM PRN (16:30)
[2023-07-18] MEDS ORDERED: DEXTROSE 50%-WATER 50 ML DISP.SYRIN IV PRN (16:30)
[2023-07-18] MEDS ORDERED: 0.9%NACL 1000ML 1,000 ML IV SCH (16:30)
[2023-07-18] MEDS ORDERED: CLOP-31 PO (19:14)
[2023-07-18] MEDS: 0.9%NACL 1000ML 1,000 ML IV SCH (19:49)
[2023-07-19] MEDS ORDERED: CLOPIDOGREL 75MG TAB PO SCH (09:00)
== END 2023-07-18 20:30 | disposition home or self-care (01) ==
LOC: DAH 10:50
PROVIDERS: ATTEND Student in an Organized Health Care Education/Training Program
DX: R93.1 Abnormal findings on diagnostic imaging of heart and coronary circulation (principal); I25.119 Atherosclerotic heart disease of native coronary artery with unspecified angina pectoris; I10 Essential (primary) hypertension; E66.9 Obesity, unspecified; E78.5 Hyperlipidemia, unspecified; Z79.01 Long term (current) use of anticoagulants; Z95.5 Presence of coronary angioplasty implant and graft; Z79.82 Long term (current) use of aspirin; Z79.899 Other long term (current) drug therapy; Z98.890 Other specified postprocedural states; Z68.32 Body mass index [BMI] 32.0-32.9, adult
CPT/HCPCS: 80048; 83880; 85025 ×2; 85610; 85730; 36415 ×2; 92978; 85347 ×2; 93458; C9600 ×2; C1769 ×2; C1725 ×4; C1874 ×2; C1894; A4649 ×2; C1887; C1753; J3010; J0690; J1644 ×3; J2250 ×2; J1327 ×2; J3490 ×2; Q9967 ×4; A4215; A4222; A4221; A4663; A4216; A4606; Q9965; A4223 ×3; 99156; 99157

== ENCOUNTER 2023-10-07 06:13 | Emergency (ER) | payer OTHER ==
[~2023-10-07] VITALS: Ht 165.1 cm; Wt 88.5 kg
[~2023-10-07 06:13] MED LIST changes: +AMLO-258 PO; +CLOP-31 PO
[2023-10-07] MEDS: KETOROLAC 30MG VIAL (30MG/ML) IVP ONE (06:34)
[2023-10-07] MEDS: MORPHINE 2 MG SYG IVP ONE (06:34)
[2023-10-07] MEDS: ONDANSETRON 4MG INJ IVP ONE (06:34)
[2023-10-07] MEDS: BACLOFEN 10 MG TABLET PO SCH (06:35)
[2023-10-07] MEDS: DEXAMETHASONE SOD PHOSPHATE 4 MG/ML 1ML VIAL IVP ONE (08:56)
[2023-10-07] MEDS ORDERED: HYDR-4060 PO (08:57)
[2023-10-07] MEDS ORDERED: PRED50TA2 PO (08:57)
[2023-10-07] MEDS ORDERED: CYCL10TA16 PO (08:57)
[2023-10-07 09:11] VITALS: BP 120/73; PULSE 62; RESP 17; O2SAT 96
== END 2023-10-07 09:12 | disposition home or self-care (01) ==
LOC: EDH 06:13
DX: M54.41 Lumbago with sciatica, right side (principal); M51.36 Other intervertebral disc degeneration, lumbar region; Z79.899 Other long term (current) drug therapy; Z79.82 Long term (current) use of aspirin; Z98.890 Other specified postprocedural states
CPT/HCPCS: 99284; 96374; 96375; J1100; J2270; J2405; J1885

== ENCOUNTER → 2023-10-31 | Outpatient (CLI) | payer OTHER ==
[~2023-10-31] MED LIST changes: +CYCL10TA16 PO; +HYDR-4060 PO; +PRED50TA2 PO
[2023-11-01 09:11] LABS: BASOPHILS # (AUTO) 0.05 K/uL (0.00-0.20); BASOPHILS % (AUTO) 0.5 % (0.0-5.0); EOSINOPHILS # (AUTO) 0.36 K/uL (0.00-0.70); EOSINOPHILS % (AUTO) 3.9 % (0.0-8.0); HEMATOCRIT 40.8 % (42-54); IMMATURE GRANULOCYTE ABSOLUTE 0.04 K/uL (0-1); LYMPHOCYTES % (AUTO) 21.3 % (21.0-51.0); MEAN CORPUSCULAR HEMOGLOBIN 29.3 pg (27.0-33.0); MEAN CORPUSCULAR HGB CONC 34.6 g/dL (32.0-36.0); MEAN CORPUSCULAR VOLUME 84.8 fL (79-99); MONOCYTES # (AUTO) 0.7 K/uL (0.1-1.0); MONOCYTES % (AUTO) 7.4 % (3.0-13.0); NEUTROPHILS # (AUTO) 6.1 K/uL (1.8-7.7); NEUTROPHILS % (AUTO) 66.5 % (40.0-77.0); PLATELET COUNT (AUTO) 256 K/uL (130-400); RED BLOOD CELL COUNT(AUTO) 4.81 MIL/uL (4.50-6.20); RED CELL DISTRIBUTION WIDTH 13.2 % (11.0-15.5); WHITE BLOOD COUNT (AUTO) 9.2 K/uL (4.8-10.8)
[2023-11-01 09:26] LABS: ALBUMIN 3.9 g/dL (3.5-5.0); BILIRUBIN,TOTAL 0.6 mg/dL (0.2-1.0); CREATININE 1.1 mg/dL (0.5-1.3); POTASSIUM 4.7 mmol/L (3.5-5.1); TOTAL PROTEIN, SERUM 7.3 g/dL (6.0-8.3)
[2023-11-01 10:42] LABS: ERYTHROCYTE SEDIMENTATION RATE 10 MM/HR (0-20)
== END | disposition home or self-care (01) ==
LOC: LAB 06:21
PROVIDERS: ATTEND Internal Medicine
DX: I10 Essential (primary) hypertension (principal); I25.10 Atherosclerotic heart disease of native coronary artery without angina pectoris; R73.01 Impaired fasting glucose; E66.9 Obesity, unspecified
CPT/HCPCS: 36415; 80053; 80061; 83036; 84153; 85025; 85651

== ENCOUNTER → 2023-11-14 | Outpatient (CLI) | payer OTHER ==
[~2023-11-14] MED LIST changes: +GADOTERATE MEGLUMINE 10 MMOL/20 ML VIAL IV ONE
== END | disposition home or self-care (01) ==
LOC: RAH 11:02
PROVIDERS: ATTEND Internal Medicine
DX: M47.22 Other spondylosis with radiculopathy, cervical region (principal); M48.02 Spinal stenosis, cervical region
CPT/HCPCS: 72156; A9575

== ENCOUNTER → 2023-11-25 | Outpatient (CLI) | payer OTHER ==
[~2023-11-25] MED LIST changes: -GADOTERATE MEGLUMINE 10 MMOL/20 ML VIAL IV ONE
== END | disposition home or self-care (01) ==
LOC: RAH 12:33
PROVIDERS: ATTEND Internal Medicine
DX: M47.26 Other spondylosis with radiculopathy, lumbar region (principal); M48.07 Spinal stenosis, lumbosacral region; M41.86 Other forms of scoliosis, lumbar region; M47.817 Spondylosis without myelopathy or radiculopathy, lumbosacral region
CPT/HCPCS: 72148

== ENCOUNTER → 2023-12-09 | Outpatient (CLI) | payer OTHER | END | disposition home or self-care (01) | LOC: RAH 07:38 | PROVIDERS: ATTEND Internal Medicine | DX: M48.04 Spinal stenosis, thoracic region (principal) | CPT/HCPCS: 72146 ==

== ENCOUNTER 2024-02-16 17:50 | Emergency (ER) | payer MEDICARE, OTHER ==
[~2024-02-16] VITALS: Ht 165.1 cm; Wt 90.7 kg
[2024-02-16] MEDS ORDERED: IOHEXOL-350 75 ML VIAL IV ONE (17:51)
--- NOTE | 2024-02-16 18:07 | ERN ---
ED Note History of Present Illness Stated Complaint: SWOLLEN FEET Chief Complaint: Lower Extremity Pain/Injury Time Seen by MD: 17:58 Time Seen by Midlevel: 17:59 Dictation: Mr. Reyes is a 68 year old gentleman with history of CAD/stent, hypertension, and chronic back pain who presented to the emergency department this evening for evaluation of lower extremity pain. He reports pain to bilateral lower extremities 3 days. He initially felt that this was due to walking a lot during his vacation. Today, he noted edema to both lower legs/ankles as well as pain/tightness to left calf. He also reports shortness of breath/dyspnea on exertion and productive cough. He denies having fever, chills, chest pain, palpitations, abdominal pain, nausea, vomiting, diarrhea, dysuria, headache, or dizziness. 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 Home Meds Active Scripts Albuterol Sulfate (Ventolin Hfa) 90 Mcg Hfa.aer.ad, 2 PUFF IH Q4HPRN PRN for wheezing for 30 Days, #18 GM 0 Refills Prov:SNEHA ACEVEDO NP 02/16/24 Azithromycin (Azithromycin) 250 Mg Tablet, 1 TAB PO AD for two tabs on day 1 for 5 Days, #6 TAB 0 Refills 2 the first day followed by 1 for days 2-5 Prov:SNEHA ACEVEDO NP 02/16/24 Hydrocodone/Acetaminophen (Hydrocodon-Acetaminophen 5-325) 5 Mg-325 Mg Tablet, 1 EACH PO Q4HPRN PRN for PAIN, #15 TAB Prov:ALLY BRYANT MD 10/07/23 Prednisone (Prednisone) 50 Mg Tablet, 50 MG PO DAILY for 5 Days, #5 TAB 0 Refills Prov:ALLY BRYANT MD 10/07/23 Cyclobenzaprine HCl (Flexeril) 10 Mg Tab, 10 MG PO TID for muscle sstiffness, #60 TAB 0 Refills Prov:ALLY BRYANT MD 10/07/23 Reported Medications Clopidogrel Bisulfate (Plavix) 75 Mg Tablet, 75 MG PO DAILY, TAB 07/18/23 Amlodipine Besylate (Amlodipine Besylate) 10 Mg Tablet, 10 MG PO DAILY for 30 Days, #30 TAB 0 Refills 07/18/23 [Glucosamine] No Conflict Check, 1 TAB PO DAILY 07/12/23 [Vitamin B Complex] No Conflict Check, 1 TAB PO DAILY 07/12/23 [Zinc] No Conflict Check, 1 TAB PO DAILY 07/12/23 Tamsulosin HCl (Flomax) 0.4 Mg Cap.er.24h, 0.4 MG PO AM, CAPSULE. 07/12/23 Atorvastatin Calcium (LIPITOR) 40 Mg Tablet, 40 MG PO AM, TAB 07/12/23 Aspirin (Aspirin EC) 81 Mg Tablet.dr, 81 MG PO AM, TAB 07/12/23 Past Medical History Past Medical History: CAD, Hypertension Additional Past Medical Hx: BACK PAIN Surgical History: Other Surgical History Other: STENT PSYCH History: no pertinent psych hx Family History: Negative Social History: Negative, Lives with family RN Note Reviewed/Agreed w/PFSH: Yes Review of System Dictation REVIEW OF SYSTEMS: CONSTITUTIONAL: Patient denies fevers, chills, sweats and weight changes. EYES: Patient denies any visual symptoms. EARS, NOSE, AND THROAT: No difficulties with hearing. No symptoms of rhinitis or sore throat. CARDIOVASCULAR: Patient denies chest pains, palpitations, orthopnea and paroxy smal nocturnal dyspnea. RESPIRATORY: No wheezing. Reports shortness of breath with activity. Reports productive cough. GI: No nausea, vomiting, diarrhea, constipation, abdominal pain, hematochezia or melena. : No urinary hesitancy or dribbling. No nocturia or urinary frequency. No abnormal urethral discharge. MUSCULOSKELETAL: Reports pain and swelling bilateral legs. Reports tenderness left calf. NEUROLOGIC: No chronic headaches, no seizures. Patient denies numbness, tingling or weakness. PSYCHIATRIC: Patient denies problems with mood disturbance. No problems with anxiety. ENDOCRINE: No excessive urination or excessive thirst. DERMATOLOGIC: Patient denies any rashes or skin changes. Initial Vital Sign VS Vital Signs Date Time Temp Pulse Resp B/P (MAP) Pulse Ox O2 Delivery O2 Flow Rate FiO2 02/16/24 17:51 98.1 94 18 134/81 98 02/16/24 18:37 Room Air* 0 21 Physical Exam Dictation Vital signs: Reviewed. afebrile. Constitutional: No acute distress. Non-toxic appearing. Head/Face: Normocephalic, atraumatic. Eyes: Periorbital areas with no swelling, redness, or edema. Lids and lashes are normal. Conjunctival injection is absent. Sclera anicteric. Pupils equal, round, reactive to light. ENT: Pinnas intact and no signs of trauma or erythema. Ear canals clear and no discharge. TMs no erythema. No nasal discharge or bleeding noted. Oropharynx with no exudate, redness, swelling, masses, exudates, or evidence of obstruction. Uvula midline. Mucous membranes moist. Neck: Trachea midline, no masses palpated, and no cervical lymphadenopathy. No swelling. Supple, full range of motion. Chest/Axilla: No tenderness, no crepitus, no paradoxical movement, no retractions. Cardiovascular: Regular rate, regular rhythm, no murmur, no gallops. Symmetric pulses. Trace nonpitting LE edema. 12 lead EKG reflects a sinus rhythm without ST elevation. Respiratory: Respirations even and unlabored. Lung sounds with scattered rhonchi and occasional expiratory wheeze. Room air spo2 97%. Gastrointestinal: Inspection is normal. No distention is appreciated. Bowel sounds are normal. No mass or organomegaly . There is no tenderness. No rebound. No rigidity. No voluntary or involuntary guarding. No Brunner's sign. Neurological: Normal speech, gross motor function intact, gross sensory function intact. No focal weakness/Paresthesia. Musculoskeletal/Extremities: All extremities have full range of motion, no pain or tenderness on palpation. Symmetric pulses. Integumentary: Intact. Skin is normal color, warm and dry. Cap refill less than 3 seconds. Results (Laboratory/Radiology) Laboratory/Radiology Laboratory Tests Test 02/16/24 18:30 02/16/24 18:58 Urine Color YELLOW (YELLOW) Urine Appearance CLEAR (CLEAR) Urine pH 5.5 (5.0-8.0) Urine Specific [place] 1.027 (1.001-1.031) Urine Protein 10 mg/dL (NEGATIVE) H Urine Glucose (UA) 300 mg/dL (NEGATIVE) H Urine Ketones NEGATIVE mg/dL (NEGATIVE) Urine Occult Blood NEGATIVE (NEGATIVE) Urine Nitrate NEGATIVE (NEGATIVE) Urine Bilirubin 1 mg/dL (NEGATIVE) H Urine Urobilinogen 0.2 mg/dL (0.2-1.0) Urine Leukocyte Esterase NEGATIVE [place]lee/uL Urine RBC 2-5 /HPF (0-1) H Urine WBC 0-1 /HPF (0-1) Urine Bacteria RARE /HPF (None Seen) White Blood Count 8.1 K/uL (4.8-10.8) Red Blood Count 4.97 MIL/uL (4.50-6.20) Hemoglobin 14.8 g/dL (14.0-18.0) Hematocrit 42.6 % (42-54) Mean Corpuscular Volume 85.7 fL (79-99) Mean Corpuscular Hemoglobin 29.8 pg (27.0-33.0) Mean Corpuscular Hemoglobin Concent 34.7 g/dL (32.0-36.0) Red Cell Distribution Width 12.4 % (11.0-15.5) Platelet Count 284 K/uL (130-400) Mean Platelet Volume 9.4 fL (7.5-10.5) Immature Granulocyte % (Auto) 0.4 % (0-1) Neutrophils (%) (Auto) 55.7 % (40.0-77.0) Lymphocytes (%) (Auto) 27.0 % (21.0-51.0) Monocytes (%) (Auto) 12.5 % (3.0-13.0) Eosinophils (%) (Auto) 3.7 % (0.0-8.0) Basophils (%) (Auto) 0.7 % (0.0-5.0) Neutrophils # (Auto) 4.5 K/uL (1.8-7.7) Lymphocytes # (Auto) 2.2 K/uL (1.0-4.8) Monocytes # (Auto) 1.0 K/uL (0.1-1.0) Eosinophils # (Auto) 0.30 K/uL (0.00-0.70) Basophils # (Auto) 0.06 K/uL (0.00-0.20) Absolute Immature Granulocyte (auto 0.03 K/uL (0-1) Nucleated Red Blood Cells 0.0 % (0.0-0.19) D-Dimer Quantitative (PE/DVT) 702 ng/mL (0-500) *H Sodium Level 136 mmol/L (136-145) Potassium Level 3.5 mmol/L (3.5-5.1) Chloride Level 101 mmol/L (101-111) Carbon Dioxide Level 29 mmol/L (21-32) Blood Urea Nitrogen 15 mg/dL (7-18) Creatinine 0.9 mg/dL (0.5-1.3) Glomerular Filtration Rate Calc 94 mL/min (>90) Random Glucose 89 mg/dL (70-105) Total Calcium 8.8 mg/dL (8.5-10.1) Total Bilirubin 0.5 mg/dL (0.2-1.0) Aspartate Amino Transf (AST/SGOT) 21 U/L (10-37) Alanine Aminotransferase (ALT/SGPT) 37 U/L (12-78) Alkaline Phosphatase 89 U/L (50-136) Troponin I High Sensitivity 14 ng/L (4-75) B-Type Natriuretic Peptide 5 pg/mL (0-100) Total Protein 6.9 g/dL (6.0-8.3) Albumin 3.6 g/dL (3.5-5.0) Labs Reviewed?: Yes EKG Comment: EKG Interpretation: Time Reviewed: 1812 Ventricular rate: 85 bpm TN Interval: 177 ms QRS duration:[address] segment elevation or depression. Clinical impression: Sinus rhythm EKG Reviewed and interpreted by: Dr. Kathy Puckett X-RAY Comment: PATIENT: СЕРГЕЙ REYES MR#: [id number] : 1955 SEX: M AGE: 68 LOCATION: [facility] ORDER 03 STATUS: [facility] REPORT#: [id number] SERVICE 01 REASON: sob/cough ORDERING PHYSICIAN: SNEHA ACEVEDO NP PROCEDURE: CXR2VW - CHEST 2VWS CHEST 2VWS HISTORY: Shortness of breath COMPARISON: 07/12/2023 FINDINGS: Frontal and lateral projections of the chest were obtained. There are prominent interstitial markings with possible superimposed infiltrates. The heart is borderline enlarged. Degenerative changes are seen of the thoracolumbar spine. IMPRESSION: 1. There are prominent interstitial markings. Possible superimposed infiltrates cannot be excluded. DICTATED BY: DORIS STAHL MD DATE: 02/16/241840 ELECTRONICALLY SIGNED BY: DORIS STAHL MD DATE: 02/16/241844 Ultrasound Comment: PATIENT: СЕРГЕЙ REYES MR#: [id number] : 1955 SEX: M AGE: 68 LOCATION: [facility] ORDER 1800 STATUS: REG ER REPORT#: [id number] SERVICE 57 REASON: LE edema ORDERING PHYSICIAN: SNEHA ACEVEDO NP PROCEDURE: VENOUS ANDRES - US VENOUS DOPPLER BILATERAL US VENOUS DOPPLER BILATERAL HISTORY: Lower extremity edema COMPARISON: None TECHNIQUE: Bilateral lower extremity venous Doppler ultrasound study was performed. FINDINGS: The common femoral, femoral, popliteal, and posterior tibial veins are visualized. Normal flow with augmentation and compressibilities are demonstrated. The greater saphenous veins are also seen and grossly patent. IMPRESSION: 1. No evidence of deep venous thrombosis is seen. DICTATED BY: DORIS STAHL MD DATE: 02/16/241847 ELECTRONICALLY SIGNED BY: DORIS STAHL MD DATE: 02/16/241849 CT Scan Comment: ATIENT: СЕРГЕЙ REYES MR#: [id number] : 1955 SEX: M AGE: 68 LOCATION: ED ORDER 47 STATUS: [facility] ER REPORT#: [id number] SERVICE 46 REASON: sob, elevated D dimer ORDERING PHYSICIAN: SNEHA ACEVEDO NP PROCEDURE: CHES PE - CT CHEST PE PROTOCOL WWO CONT CT CHEST PE PROTOCOL WWO CONT CLINICAL HISTORY: sob, elevated D dimer COMPARISON: None TECHNIQUE: CT angiography of the chest was performed both before and after intravenous contrast administration. The study was performed using angiographic technique with maximum intensity projection reconstruction images. Patient was given 75 ml of Omnipaque through intravenous route. CT was performed with one or more of the following dose reduction techniques: automated exposure control, adjustment of the mA and/or kV according to patient size, or use of iterative reconstruction technique FINDINGS: This study is somewhat limited by bolus timing but there is no identified filling defects in the pulmonary vascular vasculature suggest pulmonary embolism. There are no identified lung infiltrates. The mediastinum is free of pathologic size lymph nodes. There is mild to moderate left anterior descending coronary artery calcified atherosclerotic vascular disease. The visualized intra-abdominal viscera is unremarkable. The bony structures demonstrate mild diffuse degenerative changes of the spine. IMPRESSION: No CT angiographic evidence of pulmonary embolus is seen. Calcified coronary disease. DICTATED BY: MAJO BETANCOURT DO DATE: 02/16/242044 ELECTRONICALLY SIGNED BY: MAJO BETANCOURT DO DATE: 02/16/242052 ED Course ED Course Orders Procedure Category Date Status Time Cbc With Differential LAB 02/16/24 Complete 17:58 Comprehensive LAB 02/16/24 Complete Metabolic Panel 17:58 Urinalysis Profile LAB 02/16/24 Complete 17:58 B-Type Natriuretic LAB 02/16/24 Complete Peptide 17:58 Us Venous Doppler US 02/16/24 Resulted Bilateral 17:58 Chest 2vws RAD 02/16/24 Resulted 18:02 Troponin I High LAB 02/16/24 Complete Sensitivity 18:02 D-Dimer LAB 02/16/24 Complete 18:02 12 Lead Ekg Tracing- EKG 02/16/24 Resulted Technical 18:02 Ct Chest Pe Protocol CT 02/16/24 Resulted Wwo Cont 19:47 Vital Signs Date Time Temp Pulse Resp B/P (MAP) Pulse Ox O2 Delivery O2 Flow Rate FiO2 02/16/24 21:31 98.1 88 18 132/78 98 Room Air* 0 21 02/16/24 19:39 98.1 88 18 132/78 98 Room Air* 0 21 02/16/24 18:37 98.1 94 18 134/81 98 Room Air* 0 21 02/16/24 17:51 98.1 94 18 134/81 98 Uneventful ED course. Vital signs remained stable; afebrile with room air SpO2 98%. Venous ultrasound of bilateral lower extremities negative for DVT. Laboratory findings as noted below. Troponin negative. D-dimer is elevated at 702. CTA of the chest was performed which was negative for pulmonary embolus. Lung sounds essentially clear with some expiratory wheeze and scattered rhonchi. He has a persistent cough. Findings were discussed with patient and all questions were answered. Upon review of home medications noted patient is on amlodipine and he should continue to monitor for peripheral edema. Medical Decision Making [facility] MDM: Differential diagnosis: Lower extremity DVT, PE, CPAP, bronchitis Rationale: Tests considered and ordered secondary to shared decision making include: Lab, EKG, CXR, US, CTT Previous outside records reviewed: Old ER visits. Risk of complication and/or morbidity or mortality of patient management: None Medications-Per medication reconciliation Need for hospitalization: Patient does not meet criteria for hospitalization. Need for emergency major/minor surgery: No There are no social concerns with this patient. Prescription drug management: Azithromycin, Ventolin MDI Prescriptions will include symptomatic care Patient's prior external medical records from other ER visits were reviewed by me as indicated. Prior testing and results from previous visits were reviewed. Prior tests were taken into account with medical decision making and resource utilization, independent historian/historians were used to obtain complete medical history. I independently interpreted the test that were performed, results were reviewed by me and considered findings on radiology if ordered. Medical management and examination interpretation discussions were had by me with other qualified healthcare professionals as indicated for the patient's care. DX & DISP Disposition: Discharge Departure Impression: Primary Impression: Acute bronchitis Additional Impressions: Cough, Muscle strain Condition: Stable Scripts Albuterol Sulfate (Ventolin Hfa) 90 Mcg Hfa.aer.ad 2 PUFF IH Q4HPRN PRN for wheezing for 30 Days, #18 GM 0 Refills Prov: SNEHA ACEVEDO NP 02/16/24 Azithromycin (Azithromycin) 250 Mg Tablet 1 TAB PO AD for two tabs on day 1 for 5 Days, #6 TAB 0 Refills 2 the first day followed by 1 for days 2-5 Prov: SNEHA ACEVEDO NP 02/16/24 Additional Instructions: Follow up with your primary care physician in the next 3-5 days. Continue to monitor for edema. This could be caused from amlodipine. Take azithromycin as indicated. Albuterol MDI as needed for wheezing. Return to the emergency department for any worsening of symptoms or concerns. Referrals: TUSHAR REYES MD (PCP) Time of Disposition: 21:27 ATTESTATION BY PHYSICIAN I PERFORMED THE SUBSTANTIVE PORTION OF THE VISIT. I HAVE REVIEWED AND PERSONALLY MADE AND APPROVED THE MANAGEMENT PLAN THAT IS DOCUMENTED IN THE NOTE BY MYSELF FOR THE A PP. I ACKNOWLEDGED FOR RESPONSIBILITY FOR THE PATIENT'S MANAGEMENT PLAN. SNEHA ACEVEDO NP Feb 16, 2024 18:07 DAVID PUCKETT MD Feb 17, 2024 05:18
--- NOTE | 2024-02-16 18:18 | EKG ---
[facility] Test Date: 2024-02-16 Test Time: 18:13:26 Pat Name: СЕРГЕЙ REYES Department: [facility] Room: Gender: M [employer]: [id number] : 1955 Requested By: SNEHA ACEVEDO Order Number: [id number] Reading MD: Douglas Rios Measurements Intervals [place] Rate: 85 P: 57 CT: 177 QRS: 52 QRSD: 93 T: 44 QT: 333 QTc: 396 Interpretive Statements Sinus rhythm Nonspecific STT abnormality Compared to ECG 07/12/2023 10:27:28 No significant changes Electronically Signed On 02-16-2024 20:18:26 CDT by Douglas Rios Please click the below link to view image of tracing.
[2024-02-16 18:41] LABS: APPEARANCE,URINE CLEAR (CLEAR); BILIRUBIN,URINE 1 mg/dL (NEGATIVE); COLOR,URINE YELLOW (YELLOW); GLUCOSE, URINE (UA) 300 mg/dL (NEGATIVE); KETONES,URINE NEGATIVE (NEGATIVE); LEUKOCYTE ESTERASE ,URINE NEGATIVE Leu/uL (NEGATIVE); NITRATE,URINE NEGATIVE (NEGATIVE); OCCULT BLOOD,URINE NEGATIVE (NEGATIVE); PH,URINE 5.5 (5.0-8.0); PROTEIN,URINE 10 mg/dL (NEGATIVE); UROBILINOGEN,URINE 0.2 mg/dL (0.2-1.0)
--- NOTE | 2024-02-16 18:45 | HMCIMG ---
CHEST 2VWS HISTORY: Shortness of breath COMPARISON: 07/12/2023 FINDINGS: Frontal and lateral projections of the chest were obtained. There are prominent interstitial markings with possible superimposed infiltrates. The heart is borderline enlarged. Degenerative changes are seen of the thoracolumbar spine. IMPRESSION: 1. There are prominent interstitial markings. Possible superimposed infiltrates cannot be excluded.
[2024-02-16 18:47] LABS: ADD UA MICROSCOPIC YES
[2024-02-16 18:49] LABS: BACTERIA,URINE RARE /HPF (None Seen); MUCUS,URINE RARE LPF (None Seen); WBC,URINE 0-1 /HPF (0-1)
--- NOTE | 2024-02-16 18:50 | HMCIMG ---
US VENOUS DOPPLER BILATERAL HISTORY: Lower extremity edema COMPARISON: None TECHNIQUE: Bilateral lower extremity venous Doppler ultrasound study was performed. FINDINGS: The common femoral, femoral, popliteal, and posterior tibial veins are visualized. Normal flow with augmentation and compressibilities are demonstrated. The greater saphenous veins are also seen and grossly patent. IMPRESSION: 1. No evidence of deep venous thrombosis is seen.
[2024-02-16 19:12] LABS: BASOPHILS # (AUTO) 0.06 K/uL (0.00-0.20); BASOPHILS % (AUTO) 0.7 % (0.0-5.0); EOSINOPHILS % (AUTO) 3.7 % (0.0-8.0); HEMATOCRIT 42.6 % (42-54); IMMATURE GRANULOCYTE ABSOLUTE 0.03 K/uL (0-1); LYMPHOCYTES # (AUTO) 2.2 K/uL (1.0-4.8); MEAN CORPUSCULAR HEMOGLOBIN 29.8 pg (27.0-33.0); MEAN CORPUSCULAR HGB CONC 34.7 g/dL (32.0-36.0); MEAN CORPUSCULAR VOLUME 85.7 fL (79-99); MONOCYTES % (AUTO) 12.5 % (3.0-13.0); NEUTROPHILS # (AUTO) 4.5 K/uL (1.8-7.7); NEUTROPHILS % (AUTO) 55.7 % (40.0-77.0); PLATELET COUNT (AUTO) 284 K/uL (130-400); RED BLOOD CELL COUNT(AUTO) 4.97 MIL/uL (4.50-6.20); RED CELL DISTRIBUTION WIDTH 12.4 % (11.0-15.5); WHITE BLOOD COUNT (AUTO) 8.1 K/uL (4.8-10.8)
[2024-02-16 19:16] LABS: CREATININE 0.9 mg/dL (0.5-1.3); POTASSIUM 3.5 mmol/L (3.5-5.1)
[2024-02-16 19:25] LABS: B-TYPE NATRIURETIC PEPTIDE 5 pg/mL (0-100)
[2024-02-16 19:26] LABS: ALBUMIN 3.6 g/dL (3.5-5.0); BILIRUBIN,TOTAL 0.5 mg/dL (0.2-1.0); TOTAL PROTEIN, SERUM 6.9 g/dL (6.0-8.3)
--- NOTE | 2024-02-16 20:53 | HMCIMG ---
CT CHEST PE PROTOCOL WWO CONT CLINICAL HISTORY: sob, elevated D dimer COMPARISON: None TECHNIQUE: CT angiography of the chest was performed both before and after intravenous contrast administration. The study was performed using angiographic technique with maximum intensity projection reconstruction images. Patient was given 75 ml of Omnipaque through intravenous route. CT was performed with one or more of the following dose reduction techniques: automated exposure control, adjustment of the mA and/or kV according to patient size, or use of iterative reconstruction technique FINDINGS: This study is somewhat limited by bolus timing but there is no identified filling defects in the pulmonary vascular vasculature suggest pulmonary embolism. There are no identified lung infiltrates. The mediastinum is free of pathologic size lymph nodes. There is mild to moderate left anterior descending coronary artery calcified atherosclerotic vascular disease. The visualized intra-abdominal viscera is unremarkable. The bony structures demonstrate mild diffuse degenerative changes of the spine. IMPRESSION: No CT angiographic evidence of pulmonary embolus is seen. Calcified coronary disease.
[2024-02-16] MEDS ORDERED: AZIT250T9 PO (21:23)
[2024-02-16] MEDS ORDERED: ALBU18HF7 IH (21:23)
[2024-02-16 21:31] VITALS: BP 132/78; PULSE 88; RESP 18; TEMP 98.1; O2SAT 98
== END 2024-02-16 21:33 | disposition home or self-care (01) ==
LOC: EDH 17:50
DX: S86.811A Strain of other muscle(s) and tendon(s) at lower leg level, right leg, initial encounter (principal); S86.812A Strain of other muscle(s) and tendon(s) at lower leg level, left leg, initial encounter; J20.9 Acute bronchitis, unspecified; I10 Essential (primary) hypertension; I25.10 Atherosclerotic heart disease of native coronary artery without angina pectoris; Z79.02 Long term (current) use of antithrombotics/antiplatelets; Z79.52 Long term (current) use of systemic steroids; Z79.899 Other long term (current) drug therapy; Z98.890 Other specified postprocedural states; X58.XXXA Exposure to other specified factors, initial encounter; Y93.89 Activity, other specified; Y92.89 Other specified places as the place of occurrence of the external cause; Y99.8 Other external cause status
CPT/HCPCS: 99285; 93970; 71270; 71046; 84484; 80053; 83880; 85025; 85378; 81001; 36415; 93005; Q9967

== ENCOUNTER → 2024-02-28 | Outpatient (CLI) | payer OTHER ==
[~2024-02-28] MED LIST changes: +ALBU18HF7 IH; +AZIT250T9 PO
[2024-02-28 09:25] LABS: BASOPHILS # (AUTO) 0.12 K/uL (0.00-0.20); EOSINOPHILS # (AUTO) 0.37 K/uL (0.00-0.70); EOSINOPHILS % (AUTO) 2.9 % (0.0-8.0); HEMATOCRIT 43.8 % (42-54); IMMATURE GRANULOCYTE ABSOLUTE 0.09 K/uL (0-1); LYMPHOCYTES # (AUTO) 2.5 K/uL (1.0-4.8); LYMPHOCYTES % (AUTO) 19.9 % (21.0-51.0); MEAN CORPUSCULAR HGB CONC 34.5 g/dL (32.0-36.0); MEAN CORPUSCULAR VOLUME 84.2 fL (79-99); MONOCYTES # (AUTO) 0.8 K/uL (0.1-1.0); MONOCYTES % (AUTO) 6.1 % (3.0-13.0); NEUTROPHILS # (AUTO) 8.7 K/uL (1.8-7.7); NEUTROPHILS % (AUTO) 69.4 % (40.0-77.0); PLATELET COUNT (AUTO) 284 K/uL (130-400); RED CELL DISTRIBUTION WIDTH 12.3 % (11.0-15.5); WHITE BLOOD COUNT (AUTO) 12.6 K/uL (4.8-10.8)
[2024-02-28 09:35] LABS: HEMOGLOBIN A1C 5.7 % (4.0-6.0)
[2024-02-28 10:21] LABS: BILIRUBIN,TOTAL 0.5 mg/dL (0.2-1.0); CREATININE 0.9 mg/dL (0.5-1.3); POTASSIUM 4.3 mmol/L (3.5-5.1); THYROID STIMULATING HORMONE 2.1 uIU/mL (0.36-3.74); TOTAL PROTEIN, SERUM 7.2 g/dL (6.0-8.3); URIC ACID 5.5 mg/dL (2.6-7.2)
[2024-02-28 10:33] LABS: ERYTHROCYTE SEDIMENTATION RATE 11 MM/HR (0-20)
[2024-02-29 07:24] LABS: PSA ULTRASENSITIVE 5.06 ng/mL (0.000-4.000)
[2024-02-29 10:17] LABS: INSULIN, RANDOM OR FASTING 13.5 uIU/mL (2.6-24.9)
== END | disposition home or self-care (01) ==
LOC: LAB 07:46
PROVIDERS: ATTEND Internal Medicine
DX: Z23 Encounter for immunization (principal); K42.9 Umbilical hernia without obstruction or gangrene; M48.061 Spinal stenosis, lumbar region without neurogenic claudication; M50.90 Cervical disc disorder, unspecified, unspecified cervical region; M54.16 Radiculopathy, lumbar region
CPT/HCPCS: 36415; 80053; 80061; 82306; 82607; 83036; 83525; 83615; 84153; 84403; 84443; 84550; 85025; 85651; 86140

== ENCOUNTER 2024-04-25 13:50 | Emergency (ER) | payer OTHER, MEDICARE ==
[~2024-04-25] VITALS: Ht 165.1 cm; Wt 90.7 kg
[2024-04-25 14:16] VITALS: PULSE 104; RESP 18
[2024-04-25] MEDS: IpraTROPium/alBUTERol SULFATE 3 ML SOLUTION IH ONE (14:17)
--- NOTE | 2024-04-25 14:25 | EKG ---
[facility] Test Date: 2024-04-25 Test Time: 14:23:07 Pat Name: СЕРГЕЙ REYES Department: [facility] Room: Gender: M Vp Marketing: [facility] : 1955 Requested By: DAVON GROSS Order Number: [id number] Reading MD: Melinda Delgado Measurements Intervals [place] Rate: 97 P: 30 [place]: 173 QRS: 18 QRSD: 90 T: 69 QT: 334 QTc: 424 Interpretive Statements Sinus rhythm Probable left atrial enlargement Compared to ECG 02/16/2024 18:13:26 No significant changes Electronically Signed On 04-26-2024 08:17:22 [employer] EXPORT AGENT by Melinda Delgado Please click the below link to view image of tracing.
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
[2024-04-25 14:41] LABS: BASOPHILS # (AUTO) 0.11 K/uL (0.00-0.20); BASOPHILS % (AUTO) 0.8 % (0.0-5.0); EOSINOPHILS # (AUTO) 0.63 K/uL (0.00-0.70); EOSINOPHILS % (AUTO) 4.8 % (0.0-8.0); HEMATOCRIT 45.1 % (42-54); IMMATURE GRANULOCYTE ABSOLUTE 0.15 K/uL (0-1); LYMPHOCYTES # (AUTO) 3.9 K/uL (1.0-4.8); LYMPHOCYTES % (AUTO) 29.8 % (21.0-51.0); MEAN CORPUSCULAR HEMOGLOBIN 29.8 pg (27.0-33.0); MEAN CORPUSCULAR HGB CONC 34.4 g/dL (32.0-36.0); MEAN CORPUSCULAR VOLUME 86.6 fL (79-99); MONOCYTES # (AUTO) 0.9 K/uL (0.1-1.0); MONOCYTES % (AUTO) 6.8 % (3.0-13.0); NEUTROPHILS # (AUTO) 7.4 K/uL (1.8-7.7); NEUTROPHILS % (AUTO) 56.7 % (40.0-77.0); PLATELET COUNT (AUTO) 291 K/uL (130-400); RED BLOOD CELL COUNT(AUTO) 5.21 MIL/uL (4.50-6.20); RED CELL DISTRIBUTION WIDTH 12.8 % (11.0-15.5); WHITE BLOOD COUNT (AUTO) 13.1 K/uL (4.8-10.8)
[2024-04-25 14:49] LABS: COVID19 (SARS ANTIGEN RAPID) PRESUMPTIVE NEGATIVE (NEGATIVE); INFLUENZA TYPE A Negative For Type A (NEGATIVE); INFLUENZA TYPE B Negative For Type B (NEGATIVE)
--- NOTE | 2024-04-25 14:54 | ERN ---
ED Note History of Present Illness Stated Complaint: FLU SYMPTOMS Chief Complaint: Flu Symptoms Time Seen by MD: 13:54 Dictation: 68-year-old male with a history of HTN presents to the ED for evaluation of flu- like symptoms onset 1 week ago. Patient reports cough, shortness of breath, but denies any other associated symptoms at this time. Patient states symptoms have been worsening. Allergies: Coded Allergies: No Known Drug Allergies (Verified Allergy, 11/26/11) Home Meds Active Scripts Albuterol Sulfate (Ventolin Hfa) 90 Mcg Hfa.aer.ad, 2 PUFF IH Q4HPRN PRN for wheezing for 30 Days, #18 GM 0 Refills Prov:SNEHA ACEVEDO NP 02/16/24 Azithromycin (Azithromycin) 250 Mg Tablet, 1 TAB PO AD for two tabs on day 1 for 5 Days, #6 TAB 0 Refills 2 the first day followed by 1 for days 2-5 Prov:SNEHA ACEVEDO NP 02/16/24 Hydrocodone/Acetaminophen (Hydrocodon-Acetaminophen 5-325) 5 Mg-325 Mg Tablet, 1 EACH PO Q4HPRN PRN for PAIN, #15 TAB Prov:ALLY BRYANT MD 10/07/23 Prednisone (Prednisone) 50 Mg Tablet, 50 MG PO DAILY for 5 Days, #5 TAB 0 Refills Prov:ALLY BRYANT MD 10/07/23 Cyclobenzaprine HCl (Flexeril) 10 Mg Tab, 10 MG PO TID for muscle sstiffness, #60 TAB 0 Refills Prov:ALLY BRYANT MD 10/07/23 Reported Medications Clopidogrel Bisulfate (Plavix) 75 Mg Tablet, 75 MG PO DAILY, TAB 07/18/23 Amlodipine Besylate (Amlodipine Besylate) 10 Mg Tablet, 10 MG PO DAILY for 30 Days, #30 TAB 0 Refills 07/18/23 [Glucosamine] No Conflict Check, 1 TAB PO DAILY 07/12/23 [Vitamin B Complex] No Conflict Check, 1 TAB PO DAILY 07/12/23 [Zinc] No Conflict Check, 1 TAB PO DAILY 07/12/23 Tamsulosin HCl (Flomax) 0.4 Mg Cap.er.24h, 0.4 MG PO AM, CAPSULE.DR 07/12/23 Atorvastatin Calcium (LIPITOR) 40 Mg Tablet, 40 MG PO AM, TAB 07/12/23 Aspirin (Aspirin EC) 81 Mg Tablet.dr, 81 MG PO AM, TAB 07/12/23 Past Medical History Past Medical History: Hypertension Additional Past Medical Hx: BACK PAIN Surgical History: None Surgical History Other: STENT Family History: Negative Social History: Negative, Lives with family Review of System Dictation Constitutional: Negative for fever,chills, and weight loss Eyes: Negative for injury, pain,redness, and discharge ENT: Negative for injury,pain or swelling Cardiovascular: Negative for chest pain, palpitations, and edema Respiratory: Positive for shortness a breath, cough Abdomen/GI: Negative for abdominal pain, nausea, vomiting, diarrhea, and constipation Back: Negative for injury and pain : Negative for injury, bleeding and discharge MS/Extremity: Negative for injury and deformity Skin: Negative for rash, and discoloration Neuro: Negative for headache, weakness, numbness, tingling, and seizure Psych: Negative for suicide ideation, homicidal ideation, and hallucinations Initial Vital Sign VS Vital Signs Date Time Temp Pulse Resp B/P (MAP) Pulse Ox O2 Delivery O2 Flow Rate FiO2 04/25/24 13:52 98.4 101 20 135/78 99 Room Air 0 Physical Exam Dictation General: awake, alert, NAD Head/Face: Normocephalic, atraumatic Eyes: PERRL, EOMI, vision at baseline ENT: oral cavity clear, TMs clear, no signs of infection Neck: Trachea midline, supple, no nuchal rigidity Cardiovascular: RRR, normal S1/S2, No MRGs, no JVD Respiratory: Diminished breath sounds bilaterally, wheezes bilaterally Abdomen: Soft, non-tender, non-distended, normal bowel sounds, no guarding or rebound. Skin: Warm, dry, normal turgor, no rash MS/Extremity: Pulses equal, no cyanosis, neurovascular intact, FROM Neuro: COAx4, GCS 15, strength 5/5, CN 2-12 intact, normal cerebellar exam, normal gait, Psych: Normal behavior, mood, and affect normal Results (Laboratory/Radiology) Laboratory/Radiology Laboratory Tests Test 04/25/24 14:00 04/25/24 14:28 Influenza Type A Antigen Negative For Type A Influenza Type B Antigen Negative For Type B SARS-CoV-2 Antigen (Rapid) PRESUMPTIVE NEGATIVE White Blood Count 13.1 K/uL (4.8-10.8) H Red Blood Count 5.21 MIL/uL (4.50-6.20) Hemoglobin 15.5 g/dL (14.0-18.0) Hematocrit 45.1 % (42-54) Mean Corpuscular Volume 86.6 fL (79-99) Mean Corpuscular Hemoglobin 29.8 pg (27.0-33.0) Mean Corpuscular Hemoglobin Concent 34.4 g/dL (32.0-36.0) Red Cell Distribution Width 12.8 % (11.0-15.5) Platelet Count 291 K/uL (130-400) Mean Platelet Volume 9.5 fL (7.5-10.5) Immature Granulocyte % (Auto) 1.1 % (0-1) H Neutrophils (%) (Auto) 56.7 % (40.0-77.0) Lymphocytes (%) (Auto) 29.8 % (21.0-51.0) Monocytes (%) (Auto) 6.8 % (3.0-13.0) Eosinophils (%) (Auto) 4.8 % (0.0-8.0) Basophils (%) (Auto) 0.8 % (0.0-5.0) Neutrophils # (Auto) 7.4 K/uL (1.8-7.7) Lymphocytes # (Auto) 3.9 K/uL (1.0-4.8) Monocytes # (Auto) 0.9 K/uL (0.1-1.0) Eosinophils # (Auto) 0.63 K/uL (0.00-0.70) Basophils # (Auto) 0.11 K/uL (0.00-0.20) Absolute Immature Granulocyte (auto 0.15 K/uL (0-1) Nucleated Red Blood Cells 0.0 % (0.0-0.19) Sodium Level 141 mmol/L (136-145) Potassium Level 4.0 mmol/L (3.5-5.1) Chloride Level 103 mmol/L (101-111) Carbon Dioxide Level 31 mmol/L (21-32) Blood Urea Nitrogen 23 mg/dL (7-18) H Creatinine 1.0 mg/dL (0.5-1.3) Glomerular Filtration Rate Calc 82 mL/min (>90) Random Glucose 129 mg/dL (70-105) H Hemoglobin A1c 5.7 % (4.0-6.0) Estimated Average Glucose (eAG) 117 mg/dL (70-126) Total Calcium 9.5 mg/dL (8.5-10.1) Troponin I High Sensitivity 10 ng/L (4-75) Labs Reviewed?: Yes EKG Comment: EKG 04/25/2024 time 2:23 p.m. ventricular rate 97, UT 173, QRS D 90, QT 334. Sinus rhythm, probable left atrial enlargement. No STEMI ED Course ED Course Orders Procedure Category Date Status Time Influenza Type A & B, LAB 04/25/24 Complete Rapid 13:56 Covid19 (Sars Antigen LAB 04/25/24 Complete Rapid) 13:56 Hemoglobin A1c LAB 04/25/24 Complete 13:56 Chest 2vws RAD 04/25/24 Resulted 13:56 Cbc With Differential LAB 04/25/24 Complete 13:56 12 Lead Ekg Tracing- EKG 04/25/24 Complete Technical 13:57 Basic Metabolic Panel LAB 04/25/24 Complete 13:57 Troponin I High LAB 04/25/24 Complete Sensitivity 13:57 Ipratropium/Albuterol PHA 04/25/24 Complete Neb (Duoneb) 14:00 Methylprednisolone PHA 04/25/24 Complete Succ 125mg (Solu-Medr 14:30 0.9% Nacl 500ml PHA 04/25/24 Complete Iv.Soln (Ns 500ml 14:30 Ketorolac 60mg/2ml PHA 04/25/24 Complete (Toradol 60mg/2ml) 16:30 Current Medications Medications (Trade) Dose Ordered Sig/Ramona Route PRN Reason Start Time Stop Time Status Last Admin Dose Admin Albuterol (DUOneb) 1 udvial ONCE ONCE IH 04/25/24 14:00 04/25/24 14:01 DC 04/25/24 14:17 Ketorolac Tromethamine (toRADol 60MG/ 2ML) 30 mg ONCE ONCE IM 04/25/24 16:30 04/25/24 16:31 DC 04/25/24 17:13 Methylprednisolone Sodium Succinate (Solu-medROL 125MG) 125 mg ONCE ONCE IVP 04/25/24 14:30 04/25/24 14:31 DC 04/25/24 15:40 Sodium Chloride 500 ml @ 0 mls/hr ONCE ONCE IV 04/25/24 14:30 04/25/24 14:31 DC 04/25/24 15:41 Vital Signs Date Time Temp Pulse Resp B/P (MAP) Pulse Ox O2 Delivery O2 Flow Rate FiO2 04/25/24 14:16 104 18 04/25/24 13:52 98.4 101 20 135/78 99 Room Air 0 Medical Decision Making MDM MDM: Differential diagnosis: Bronchitis, pneumonia Rationale: Tests considered and ordered secondary to shared decision making include: labs, ECG and radiology Previous outside records reviewed: Old ER visits. Risk of complication and/or morbidity or mortality of patient management: None Medications-Per medication reconciliation Need for hospitalization: Patient does not meet criteria for hospitalization. Need for emergency major/minor surgery: No Patient's prior external medical records from other ER visits were reviewed by me as indicated. Prior testing and results from previous visits were reviewed. Prior tests were taken into account with medical decision making and resource utilization, independent historian/historians were used to obtain complete medical history. I independently interpreted the test that were performed, results were reviewed by me and considered findings on radiology if ordered. Medical management and examination interpretation discussions were had by me with other qualified healthcare professionals as indicated for the patient's care. DX & DISP Disposition: Discharge Departure Impression: Primary Impression: Acute bronchitis Condition: Stable I have reviewed, & agreed with my scribe's, documentation. (Entered by Travis German, acting as a scribe for Dr. Gross) I personally scribed for DAVON GROSS MD ([email or web address]) on 04/25/24 at 14:54. Electronically submitted by Travis German ([email or web address]). DAVON GROSS MD Apr 25, 2024 14:54
[2024-04-25 14:55] LABS: HEMOGLOBIN A1C 5.7 % (4.0-6.0)
[2024-04-25] MEDS: Solu-medROL 125MG VIAL IVP ONE (15:40)
[2024-04-25] MEDS: 0.9% NACL 500ML IV.SOLN 500 ML IV ONE (15:41)
[2024-04-25] MEDS: ketOROlac 60 MG VIAL (30MG/ML) IM ONE (17:13)
[2024-04-25 18:59] VITALS: BP 135/75; PULSE 85; RESP 18; TEMP 98.5; O2SAT 99
== END 2024-04-25 19:32 | disposition home or self-care (01) ==
LOC: EDH 13:50
DX: J20.9 Acute bronchitis, unspecified (principal); I10 Essential (primary) hypertension; Z79.02 Long term (current) use of antithrombotics/antiplatelets; Z79.52 Long term (current) use of systemic steroids; Z79.899 Other long term (current) drug therapy; Z20.822 Contact with and (suspected) exposure to COVID-19
CPT/HCPCS: 99285; 96374; 71046; 87426; 83036; 84484; 80048; 85025; 87804 ×2; 36415; 93005; 94640; 96372; J7040; J2919; J1885

== ENCOUNTER → 2024-08-21 | Outpatient (CLI) | payer OTHER, MEDICARE ==
[~2024-08-21] MED LIST changes: -TAMS-1 PO; +TAMS-55 PO
[2024-08-21 09:17] LABS: BASOPHILS # (AUTO) 0.08 K/uL (0.00-0.20); BASOPHILS % (AUTO) 0.9 % (0.0-5.0); EOSINOPHILS # (AUTO) 0.25 K/uL (0.00-0.70); EOSINOPHILS % (AUTO) 2.9 % (0.0-8.0); HEMATOCRIT 45.2 % (42-54); IMMATURE GRANULOCYTE ABSOLUTE 0.04 K/uL (0-1); LYMPHOCYTES # (AUTO) 2.3 K/uL (1.0-4.8); LYMPHOCYTES % (AUTO) 26.5 % (21.0-51.0); MEAN CORPUSCULAR HEMOGLOBIN 29.9 pg (27.0-33.0); MEAN CORPUSCULAR HGB CONC 34.5 g/dL (32.0-36.0); MEAN CORPUSCULAR VOLUME 86.6 fL (79-99); MONOCYTES # (AUTO) 0.7 K/uL (0.1-1.0); MONOCYTES % (AUTO) 7.7 % (3.0-13.0); NEUTROPHILS # (AUTO) 5.3 K/uL (1.8-7.7); NEUTROPHILS % (AUTO) 61.5 % (40.0-77.0); PLATELET COUNT (AUTO) 273 K/uL (130-400); RED BLOOD CELL COUNT(AUTO) 5.22 MIL/uL (4.50-6.20); RED CELL DISTRIBUTION WIDTH 12.1 % (11.0-15.5); WHITE BLOOD COUNT (AUTO) 8.6 K/uL (4.8-10.8)
[2024-08-21 09:27] LABS: HEMOGLOBIN A1C 5.9 % (4.0-6.0)
[2024-08-21 09:57] LABS: ALBUMIN 4.1 g/dL (3.5-5.0); BILIRUBIN,DIRECT 0.2 mg/dL (0.0-0.3); BILIRUBIN,TOTAL 0.7 mg/dL (0.2-1.0); CREATININE 0.8 mg/dL (0.5-1.3); POTASSIUM 4.7 mmol/L (3.5-5.1); THYROID STIMULATING HORMONE 2.13 uIU/mL (0.36-3.74); TOTAL PROTEIN, SERUM 7.3 g/dL (6.0-8.3)
[2024-08-21 10:50] LABS: ERYTHROCYTE SEDIMENTATION RATE 3 MM/HR (0-20)
[2024-08-22 08:13] LABS: RHEUMATOID ARTHRITIS FACTOR <10.0 IU/mL (<14.0)
== END | disposition home or self-care (01) ==
LOC: LAB 07:23
PROVIDERS: ATTEND Internal Medicine
DX: I10 Essential (primary) hypertension (principal); E29.1 Testicular hypofunction; E66.9 Obesity, unspecified; F41.8 Other specified anxiety disorders; G47.09 Other insomnia; I25.10 Atherosclerotic heart disease of native coronary artery without angina pectoris; R53.83 Other fatigue; R73.01 Impaired fasting glucose
CPT/HCPCS: 36415; 80053; 80061; 82105; 82248; 82306; 82378; 82607; 83013; 83036; 84443; 85025; 85651; 86038; 86140; 86160; 86215; 86235; 86316; 86376; 86431

== ENCOUNTER 2025-01-23 09:04 | Day surgery (SDC) | payer OTHER, MEDICARE ==
[~2025-01-23] VITALS: Ht 165.1 cm; Wt 82.1 kg
[2025-01-23] VITALS (11 sets, daily range): BP systolic 98–129; BP diastolic 56–77; PULSE 59–74; RESP 14–18; TEMP 97.3–98.2
[2025-01-23] MEDS: 0.9%NACL 1000ML 1,000 ML IV ONE (11:29)
== END 2025-01-23 13:06 | disposition home or self-care (01) ==
LOC: DAH 09:04 → ENDO 09:04
PROVIDERS: ATTEND Internal Medicine Gastroenterology
DX: Z12.11 Encounter for screening for malignant neoplasm of colon (principal); D12.3 Benign neoplasm of transverse colon; D12.5 Benign neoplasm of sigmoid colon; K57.30 Diverticulosis of large intestine without perforation or abscess without bleeding; I10 Essential (primary) hypertension; I25.10 Atherosclerotic heart disease of native coronary artery without angina pectoris; E78.5 Hyperlipidemia, unspecified; Z79.82 Long term (current) use of aspirin; Z95.5 Presence of coronary angioplasty implant and graft; Z79.899 Other long term (current) drug therapy
CPT/HCPCS: 45380; 45385; J7030; J2704; A4620; A4215; A4223; A7002; A4222; A4221; A4663; A4606; J3490